=== PATIENT | female | born 1950 | race Caucasian/White ===

== ENCOUNTER 2017-08-08 19:39 | Emergency (ER) | payer MEDICARE ==
[~2017-08-08] VITALS: Ht 160 cm; Wt 50.0 kg
[2017-08-08 20:05] LABS: HEMATOCRIT 38.8 % (37.0-47.0); HEMOGLOBIN 12.9 g/dl (12.0-16.0); IMMATURE GRANULOCYTES 0.3 % (0.0-1.0); MEAN CORPUSCULAR HGB 34.6 pG CALC (26.0-32.0); MEAN CORPUSCULAR HGB CONC 33.2 g/L CALC (32.0-36.0); NEUT# 6.54 thou/uL (2.00-7.15); RED BLOOD COUNT 3.73 mill/uL (4.20-5.60)
[2017-08-08] MEDS ORDERED: ATORVASTATIN CA40 MG PO (20:13)
[2017-08-08] MEDS ORDERED: KEPPRA750 M2 PO (20:13)
[2017-08-08] MEDS ORDERED: LISINOPRIL10 MG PO (20:13)
[2017-08-08] MEDS ORDERED: DILANTIN100 MG PO (20:14)
[2017-08-08 20:20] LABS: ALBUMIN 4.5 g/dL (3.2-5.0); ALKALINE PHOSPHATASE 170 u/l (38-126); ANION GAP 16 (6-22 (CALC)); BILIRUBIN, TOTAL 0.6 mg/dL (0.0-1.4); BUN 8 mg/dL (8-23); BUN/CREATININE RATIO 15 (12-20 (CALC)); CARBON DIOXIDE 21 mmol/l (22-30); CHLORIDE 103 mmol/l (95-108); CREATININE 0.5 mg/dL (0.5-1.0); GFR > 60 ML/MIN (>=60 (CALC)); GFR FOR AFR.AMER. > 60 ML/MIN (>=60 (CALC)); MAGNESIUM 1.7 mg/dL (1.6-2.3); POTASSIUM 4.4 mmol/l (3.5-5.1); SGOT/AST 32 u/l (9-36); SGPT/ALT 34 u/l (11-66); SODIUM 136 mmol/l (137-146); TOTAL PROTEIN 7.8 g/dL (6.3-8.2)
[2017-08-08 20:31] LABS: MYOGLOBIN 15 ng/mL (0 - 62)
[2017-08-08 22:37] VITALS: BP 189/78
== END 2017-08-08 22:04 | disposition short-term general hospital (02) ==
LOC: ED 19:39
DX: G40.909 Epilepsy, unspecified, not intractable, without status epilepticus (principal); R53.1 Weakness; I10 Essential (primary) hypertension; E78.5 Hyperlipidemia, unspecified; F17.210 Nicotine dependence, cigarettes, uncomplicated; Z86.73 Personal history of transient ischemic attack (TIA), and cerebral infarction without residual deficits

== ENCOUNTER 2017-10-28 12:09 | Emergency (ER) | payer MEDICARE ==
[~2017-10-28] VITALS: Ht 160 cm; Wt 50.0 kg
[~2017-10-28 12:09] MED LIST: ATORVASTATIN CA40 MG PO; DILANTIN100 MG PO; KEPPRA750 M2 PO; LISINOPRIL10 MG PO
[2017-10-28] MEDS ORDERED: BUSPAR10 M1 PO (12:36)
[2017-10-28] MEDS ORDERED: PANTOPRAZOLE SO40 MG PO (12:36)
[2017-10-28] MEDS ORDERED: DILTIAZEM HCL180 MG PO (12:36)
[2017-10-28] MEDS ORDERED: TORADOL PO (13:41)
[2017-10-28] MEDS ORDERED: PERCOCET 5/325M1 TAB PO (13:52)
[2017-10-28 13:55] VITALS: BP 154/86
== END 2017-10-28 13:55 | disposition home or self-care (01) ==
LOC: ED 12:09
DX: S20.211A Contusion of right front wall of thorax, initial encounter (principal); I10 Essential (primary) hypertension; E78.5 Hyperlipidemia, unspecified; F17.210 Nicotine dependence, cigarettes, uncomplicated; W18.30XA Fall on same level, unspecified, initial encounter; Y92.009 Unspecified place in unspecified non-institutional (private) residence as the place of occurrence of the external cause; Z86.73 Personal history of transient ischemic attack (TIA), and cerebral infarction without residual deficits

== ENCOUNTER 2018-01-05 17:07 | Emergency (ER) | payer MEDICARE ==
[~2018-01-05] VITALS: Ht 160 cm; Wt 48.0 kg
[~2018-01-05 17:07] MED LIST changes: +BUSPAR10 M1 PO; +DILTIAZEM HCL180 MG PO; +PANTOPRAZOLE SO40 MG PO; +PERCOCET 5/325M1 TAB PO; +TORADOL PO
[2018-01-05 18:25] LABS: HEMATOCRIT 41.3 % (37.0-47.0); HEMOGLOBIN 13.9 g/dl (12.0-16.0); IMMATURE GRANULOCYTES 0.4 % (0.0-5.0); MEAN CELL VOLUME 105.9 fL CALC (80.0-100.0); MEAN CORPUSCULAR HGB 35.6 pG CALC (26.0-32.0); MEAN CORPUSCULAR HGB CONC 33.7 g/L CALC (32.0-36.0); NEUT# 11.67 thou/uL (2.00-7.15); RED BLOOD COUNT 3.9 mill/uL (4.20-5.60); RED CELL DISTRI WIDTH 12.3 % (11.5-15.5)
[2018-01-05 19:16] LABS: ALBUMIN 3.8 g/dL (3.2-5.0); ALKALINE PHOSPHATASE 247 u/l (38-126); ANION GAP 13 (6-22 (CALC)); BILIRUBIN, TOTAL 0.9 mg/dL (0.0-1.4); BUN 10 mg/dL (8-23); BUN/CREATININE RATIO 19 (12-20 (CALC)); CARBON DIOXIDE 28 mmol/l (22-30); CHLORIDE 106 mmol/l (95-108); CREATININE 0.5 mg/dL (0.5-1.0); GFR > 60 ML/MIN (>=60 (CALC)); GFR FOR AFR.AMER. > 60 ML/MIN (>=60 (CALC)); SODIUM 142 mmol/l (137-146); TOTAL PROTEIN 6.7 g/dL (6.3-8.2)
[2018-01-05 19:17] LABS: SGOT/AST 191 u/l (9-36)
[2018-01-05 19:24] LABS: AMYLASE 2087 u/l (30-110)
[2018-01-05 19:29] LABS: URINE BILIRUBIN - DIPSTICK NEGATIVE (NEGATIVE); URINE BLOOD DIPSTICK NEGATIVE (NEGATIVE); URINE COLOR YELLOW; URINE GLUCOSE - DIPSTICK NEGATIVE (NEGATIVE); URINE KETONE NEGATIVE (NEGATIVE); URINE LEUK ESTERASE NEGATIVE (NEGATIVE); URINE NITRITE - DIPSTICK NEGATIVE (Negative); URINE PROTEIN - DIPSTICK NEGATIVE (NEG-TRACE); URINE SPECIFIC GRAVITY 1.015
[2018-01-05 19:44] LABS: LIPASE 28896 u/l (23-300)
[2018-01-05 19:47] LABS: MYOGLOBIN 21 ng/mL (0 - 62)
[2018-01-05 19:52] LABS: URINE CLARITY CLEAR
[2018-01-06 00:05] VITALS: BP 124/62
== END 2018-01-06 00:10 | disposition short-term general hospital (02) ==
LOC: ED 17:07
PROVIDERS: Emergency Medicine
DX: K85.10 Biliary acute pancreatitis without necrosis or infection (principal); K80.50 Calculus of bile duct without cholangitis or cholecystitis without obstruction; I10 Essential (primary) hypertension; E78.5 Hyperlipidemia, unspecified; F17.210 Nicotine dependence, cigarettes, uncomplicated; Z86.73 Personal history of transient ischemic attack (TIA), and cerebral infarction without residual deficits
CPT/HCPCS: Q9967; S0164

== ENCOUNTER 2018-01-15 14:27 | Emergency (ER) | payer MEDICARE ==
[~2018-01-15] VITALS: Ht 160 cm; Wt 46.0 kg
[2018-01-15 14:32] VITALS: BP 152/77
[2018-01-15 15:14] LABS: IMMATURE GRANULOCYTES 0.3 % (0.0-5.0); MEAN CELL VOLUME 108.6 fL CALC (80.0-100.0); MEAN CORPUSCULAR HGB 34.6 pG CALC (26.0-32.0); MEAN CORPUSCULAR HGB CONC 31.8 g/L CALC (32.0-36.0); NEUT# 7.64 thou/uL (2.00-7.15); RED BLOOD COUNT 3.24 mill/uL (4.20-5.60); RED CELL DISTRI WIDTH 12.1 % (11.5-15.5)
[2018-01-15 15:17] LABS: HEMATOCRIT 35.2 % (37.0-47.0); HEMOGLOBIN 11.2 g/dl (12.0-16.0)
[2018-01-15 15:33] LABS: ANION GAP 15 (6-22 (CALC)); BUN 13 mg/dL (8-23); BUN/CREATININE RATIO 30 (12-20 (CALC)); CARBON DIOXIDE 23 mmol/l (22-30); CHLORIDE 108 mmol/l (95-108); CREATININE 0.4 mg/dL (0.5-1.0); GFR > 60 ML/MIN (>=60 (CALC)); GFR FOR AFR.AMER. > 60 ML/MIN (>=60 (CALC)); POTASSIUM 3.9 mmol/l (3.5-5.1); SODIUM 142 mmol/l (137-146)
[2018-01-15] MEDS ORDERED: MECLIZINE25 MG PO (15:48)
[2018-01-15] MEDS ORDERED: PANTOPRAZOLE SO40 MG PO (15:52)
[2018-01-15] MEDS ORDERED: ADULT ASPIRIN R81 MG PO (15:53)
[2018-01-15] MEDS ORDERED: CENTRUM PO (15:54)
== END 2018-01-15 16:15 | disposition home or self-care (01) ==
LOC: ED 14:27
PROVIDERS: Family Medicine
DX: G43.909 Migraine, unspecified, not intractable, without status migrainosus (principal); D32.9 Benign neoplasm of meninges, unspecified; I10 Essential (primary) hypertension; E78.5 Hyperlipidemia, unspecified; F17.210 Nicotine dependence, cigarettes, uncomplicated; Z86.73 Personal history of transient ischemic attack (TIA), and cerebral infarction without residual deficits

== ENCOUNTER → 2018-03-29 | Outpatient (REF) | payer MEDICARE ==
[~2018-03-29] MED LIST changes: +ADULT ASPIRIN R81 MG PO; +CENTRUM PO; +MECLIZINE25 MG PO
[2018-03-29 11:34] LABS: MEAN CELL VOLUME 105.6 fL CALC (80.0-100.0); MEAN CORPUSCULAR HGB 33.3 pG CALC (26.0-32.0); MEAN CORPUSCULAR HGB CONC 31.6 g/L CALC (32.0-36.0); RED BLOOD COUNT 3.6 mill/uL (4.20-5.60); RED CELL DISTRI WIDTH 12.2 % (11.5-15.5)
[2018-03-29 12:51] LABS: ALBUMIN 4.5 g/dL (3.2-5.0); ALKALINE PHOSPHATASE 259 u/l (38-126); ANION GAP 17 (6-22 (CALC)); BILIRUBIN, TOTAL 0.4 mg/dL (0.0-1.4); BUN 10 mg/dL (8-23); BUN/CREATININE RATIO 22 (12-20 (CALC)); CARBON DIOXIDE 25 mmol/l (22-30); CHLORIDE 105 mmol/l (95-108); CREATININE 0.5 mg/dL (0.5-1.0); GFR > 60 ML/MIN (>=60 (CALC)); GFR FOR AFR.AMER. > 60 ML/MIN (>=60 (CALC)); POTASSIUM 3.9 mmol/l (3.5-5.1); SODIUM 143 mmol/l (137-146); TOTAL PROTEIN 7.9 g/dL (6.3-8.2)
[2018-03-29 13:00] LABS: CALCULATED LDLCHOLESTEROL 132 mg/dL (62-129 (CALC)); CHOLESTEROL HDL RATIO 3.5 (<4.4 (CALC)); HDL CHOLESTEROL 66 mg/dL (>=40); PHENYTOIN (DILANTIN) 8 ug/mL (10 - 20); SGOT/AST 16 u/l (9-36); TOTAL CHOLESTEROL 231 mg/dl (0-199); TOTAL TRIGLYCERIDES 165 mg/dl (30-149); VLDL CHOLESTROL 33 mg/dl (0-48 (CALC))
[2018-03-29 13:13] LABS: TSH, 3RD GENERATION 2.05 uIU/mL (0.47 - 4.68)
== END | disposition home or self-care (01) ==
LOC: LAB 10:14
PROVIDERS: ATTEND Nurse Practitioner Family
DX: R56.9 Unspecified convulsions (principal); Z86.73 Personal history of transient ischemic attack (TIA), and cerebral infarction without residual deficits; R68.84 Jaw pain

== ENCOUNTER → 2018-04-27 | Outpatient (REF) | payer MEDICARE | END | disposition home or self-care (01) | LOC: ULTRASND 10:24 | PROVIDERS: ATTEND Internal Medicine | DX: R68.84 Jaw pain (principal); E04.9 Nontoxic goiter, unspecified ==

== ENCOUNTER 2018-07-17 10:10 | Inpatient (IN) | payer MEDICARE ==
[~2018-07-17] VITALS: Ht 160 cm; Wt 47.2 kg
[2018-07-17 10:45] LABS: HEMATOCRIT 38.3 % (37.0-47.0); HEMOGLOBIN 12.2 g/dl (12.0-16.0); IMMATURE GRANULOCYTES 0.4 % (0.0-5.0); MEAN CELL VOLUME 100.5 fL CALC (80.0-100.0); MEAN CORPUSCULAR HGB CONC 31.9 g/L CALC (32.0-36.0); NEUT# 8.1 thou/uL (2.00-7.15); RED BLOOD COUNT 3.81 mill/uL (4.20-5.60); RED CELL DISTRI WIDTH 12.8 % (11.5-15.5)
[2018-07-17 11:17] LABS: PROTHROMBIN TIME 10.7 SECONDS (9.0-12.5)
[2018-07-17 11:26] LABS: ALKALINE PHOSPHATASE 289 u/l (38-126); ANION GAP 22 (6-22 (CALC)); BILIRUBIN, TOTAL 0.5 mg/dL (0.0-1.4); BUN 16 mg/dL (8-23); BUN/CREATININE RATIO 25 (12-20 (CALC)); CARBON DIOXIDE 24 mmol/l (22-30); CHLORIDE 98 mmol/l (95-108); CREATININE 0.6 mg/dL (0.5-1.0); ETHYL ALCOHOL 0 mg/dl (0-30); GFR > 60 ML/MIN (>=60 (CALC)); GFR FOR AFR.AMER. > 60 ML/MIN (>=60 (CALC)); POTASSIUM 3.9 mmol/l (3.5-5.1); SODIUM 140 mmol/l (137-146); TOTAL PROTEIN 7.3 g/dL (6.3-8.2)
[2018-07-17 11:30] LABS: SGOT/AST 89 u/l (9-36)
[2018-07-17 11:54] LABS: MYOGLOBIN 2584 ng/mL (0 - 62)
[2018-07-17 12:34] LABS: URINE BILIRUBIN - DIPSTICK NEGATIVE (NEGATIVE); URINE BLOOD DIPSTICK MODERATE (NEGATIVE); URINE COLOR YELLOW; URINE GLUCOSE - DIPSTICK NEGATIVE (NEGATIVE); URINE KETONE 15 mg/dL (NEGATIVE); URINE LEUK ESTERASE NEGATIVE (NEGATIVE); URINE NITRITE - DIPSTICK NEGATIVE (Negative); URINE PH 5.5 (4.5-8.0); URINE PROTEIN - DIPSTICK >=300 mg/dL (NEG-TRACE); URINE SPECIFIC GRAVITY 1.025; URINE UROBILINOGEN - DIPSTICK 0.2 E.U./dL (0.2)
[2018-07-17 12:35] LABS: URINE EPITHELIAL CELLS MODERATE EPI/hpf (0-FEW)
[2018-07-17 12:36] LABS: BARBITURATES POSITIVE (NEGATIVE); COCAINE NEGATIVE (NEGATIVE); METHADONE NEGATIVE (NEGATIVE); TETRAHYDROCANNABIONOL NEGATIVE (NEGATIVE); TRICYLIC ANTIDEPRESSANTS NEGATIVE (NEGATIVE); URINE MUCUS MODERATE hpf (NONE-FEW)
[2018-07-17 12:37] LABS: OXCYCODONE NEGATIVE (NEGATIVE)
[2018-07-17 14:48] VITALS: BP 149/79
[2018-07-17] MEDS ORDERED: EXCEDRIN EXTRA1 TA1 PO (15:03)
[2018-07-17] MEDS ORDERED: B-12100 MCG (15:04)
[2018-07-17 19:25] VITALS: BP 116/73
[2018-07-18 04:21] VITALS: BP 143/80
[2018-07-18 05:33] LABS: HEMATOCRIT 32.7 % (37.0-47.0); HEMOGLOBIN 10.5 g/dl (12.0-16.0); IMMATURE GRANULOCYTES 0.3 % (0.0-5.0); MEAN CELL VOLUME 99.1 fL CALC (80.0-100.0); MEAN CORPUSCULAR HGB 31.8 pG CALC (26.0-32.0); MEAN CORPUSCULAR HGB CONC 32.1 g/L CALC (32.0-36.0); NEUT# 4.31 thou/uL (2.00-7.15); RED BLOOD COUNT 3.3 mill/uL (4.20-5.60); RED CELL DISTRI WIDTH 12.8 % (11.5-15.5)
[2018-07-18 05:49] LABS: ALKALINE PHOSPHATASE 223 u/l (38-126); AMYLASE 42 u/l (30-110); ANION GAP 15 (6-22 (CALC)); BILIRUBIN, TOTAL 0.3 mg/dL (0.0-1.4); BUN 10 mg/dL (8-23); BUN/CREATININE RATIO 23 (12-20 (CALC)); CARBON DIOXIDE 27 mmol/l (22-30); CHLORIDE 101 mmol/l (95-108); CREATININE 0.5 mg/dL (0.5-1.0); GFR > 60 ML/MIN (>=60 (CALC)); GFR FOR AFR.AMER. > 60 ML/MIN (>=60 (CALC)); LIPASE 30 u/l (23-300); MAGNESIUM 1.7 mg/dL (1.6-2.3); POTASSIUM 3.5 mmol/l (3.5-5.1); SGOT/AST 85 u/l (9-36); SODIUM 138 mmol/l (137-146)
[2018-07-18 05:59] LABS: ALBUMIN 3.1 g/dL (3.2-5.0)
[2018-07-18 08:08] VITALS: BP 158/64
[2018-07-18 15:10] VITALS: BP 162/92
[2018-07-18 19:10] VITALS: BP 139/86
[2018-07-19 03:47] VITALS: BP 148/82
[2018-07-19 04:59] LABS: HEMATOCRIT 33.1 % (37.0-47.0); HEMOGLOBIN 10.4 g/dl (12.0-16.0); IMMATURE GRANULOCYTES 0.3 % (0.0-5.0); MEAN CELL VOLUME 101.5 fL CALC (80.0-100.0); MEAN CORPUSCULAR HGB 31.9 pG CALC (26.0-32.0); MEAN CORPUSCULAR HGB CONC 31.4 g/L CALC (32.0-36.0); NEUT# 4.41 thou/uL (2.00-7.15); RED BLOOD COUNT 3.26 mill/uL (4.20-5.60); RED CELL DISTRI WIDTH 12.7 % (11.5-15.5)
[2018-07-19 05:35] LABS: ALBUMIN 3.1 g/dL (3.2-5.0); ALKALINE PHOSPHATASE 217 u/l (38-126); ANION GAP 14 (6-22 (CALC)); BILIRUBIN, TOTAL 0.2 mg/dL (0.0-1.4); BUN 6 mg/dL (8-23); BUN/CREATININE RATIO 14 (12-20 (CALC)); CARBON DIOXIDE 29 mmol/l (22-30); CHLORIDE 102 mmol/l (95-108); CREATININE 0.4 mg/dL (0.5-1.0); GFR > 60 ML/MIN (>=60 (CALC)); GFR FOR AFR.AMER. > 60 ML/MIN (>=60 (CALC)); MAGNESIUM 1.6 mg/dL (1.6-2.3); POTASSIUM 3.8 mmol/l (3.5-5.1); SGOT/AST 128 u/l (9-36); SODIUM 141 mmol/l (137-146)
[2018-07-19 08:06] VITALS: BP 152/73
[2018-07-19 15:00] VITALS: BP 141/77
[2018-07-19 19:17] VITALS: BP 137/70
[2018-07-20 04:10] VITALS: BP 141/91
[2018-07-20 06:07] LABS: HEMOGLOBIN 10.2 g/dl (12.0-16.0); IMMATURE GRANULOCYTES 0.4 % (0.0-5.0); MEAN CELL VOLUME 101.3 fL CALC (80.0-100.0); MEAN CORPUSCULAR HGB 32.3 pG CALC (26.0-32.0); MEAN CORPUSCULAR HGB CONC 31.9 g/L CALC (32.0-36.0); NEUT# 4.38 thou/uL (2.00-7.15); RED BLOOD COUNT 3.16 mill/uL (4.20-5.60); RED CELL DISTRI WIDTH 12.7 % (11.5-15.5)
[2018-07-20 06:33] LABS: ALKALINE PHOSPHATASE 198 u/l (38-126); AMYLASE 47 u/l (30-110); ANION GAP 13 (6-22 (CALC)); BILIRUBIN, TOTAL 0.2 mg/dL (0.0-1.4); BUN 6 mg/dL (8-23); BUN/CREATININE RATIO 17 (12-20 (CALC)); CARBON DIOXIDE 27 mmol/l (22-30); CHLORIDE 102 mmol/l (95-108); CREATININE 0.4 mg/dL (0.5-1.0); GFR > 60 ML/MIN (>=60 (CALC)); GFR FOR AFR.AMER. > 60 ML/MIN (>=60 (CALC)); LIPASE 85 u/l (23-300); MAGNESIUM 1.4 mg/dL (1.6-2.3); POTASSIUM 3.3 mmol/l (3.5-5.1); SGOT/AST 94 u/l (9-36); SODIUM 139 mmol/l (137-146); TOTAL PROTEIN 5.9 g/dL (6.3-8.2)
[2018-07-20 08:00] VITALS: BP 147/72
[2018-07-20 15:05] VITALS: BP 154/65
[2018-07-20 19:15] VITALS: BP 147/79
[2018-07-21 03:52] VITALS: BP 148/83
[2018-07-21 05:43] LABS: HEMATOCRIT 35.5 % (37.0-47.0); HEMOGLOBIN 11.1 g/dl (12.0-16.0); IMMATURE GRANULOCYTES 0.3 % (0.0-5.0); MEAN CELL VOLUME 101.7 fL CALC (80.0-100.0); MEAN CORPUSCULAR HGB 31.8 pG CALC (26.0-32.0); MEAN CORPUSCULAR HGB CONC 31.3 g/L CALC (32.0-36.0); NEUT# 4.8 thou/uL (2.00-7.15); RED BLOOD COUNT 3.49 mill/uL (4.20-5.60)
[2018-07-21 05:51] LABS: ALBUMIN 3.3 g/dL (3.2-5.0); ALKALINE PHOSPHATASE 225 u/l (38-126); ANION GAP 13 (6-22 (CALC)); BILIRUBIN, TOTAL 0.2 mg/dL (0.0-1.4); BUN 7 mg/dL (8-23); BUN/CREATININE RATIO 20 (12-20 (CALC)); CARBON DIOXIDE 27 mmol/l (22-30); CHLORIDE 101 mmol/l (95-108); CREATININE 0.4 mg/dL (0.5-1.0); GFR > 60 ML/MIN (>=60 (CALC)); GFR FOR AFR.AMER. > 60 ML/MIN (>=60 (CALC)); MAGNESIUM 1.5 mg/dL (1.6-2.3); POTASSIUM 3.4 mmol/l (3.5-5.1); SGOT/AST 53 u/l (9-36); SODIUM 138 mmol/l (137-146); TOTAL PROTEIN 6.4 g/dL (6.3-8.2)
[2018-07-21 07:59] VITALS: BP 180/90
[2018-07-21 09:01] LABS: URINE BILIRUBIN - DIPSTICK NEGATIVE (NEGATIVE); URINE BLOOD DIPSTICK LARGE (NEGATIVE); URINE GLUCOSE - DIPSTICK NEGATIVE (NEGATIVE); URINE KETONE NEGATIVE (NEGATIVE); URINE NITRITE - DIPSTICK NEGATIVE (Negative); URINE PROTEIN - DIPSTICK 100 mg/dL (NEG-TRACE); URINE SPECIFIC GRAVITY 1.015; URINE UROBILINOGEN - DIPSTICK 0.2 E.U./dL (0.2)
[2018-07-21 09:04] LABS: URINE COLOR AMBER; URINE LEUK ESTERASE SMALL (NEGATIVE)
[2018-07-21 09:11] VITALS: BP 144/70
[2018-07-21 09:13] LABS: URINE RBC >100 RBC/hpf (0-5); URINE SQUAMOUS EPITHELIAL CELL FEW EPI/hpf (0-FEW)
[2018-07-21 16:00] VITALS: BP 156/89
[2018-07-21 20:16] VITALS: BP 140/74
[2018-07-22 04:00] VITALS: BP 132/78
[2018-07-22 05:29] LABS: HEMATOCRIT 34.1 % (37.0-47.0); HEMOGLOBIN 10.7 g/dl (12.0-16.0); IMMATURE GRANULOCYTES 0.3 % (0.0-5.0); MEAN CELL VOLUME 102.1 fL CALC (80.0-100.0); MEAN CORPUSCULAR HGB CONC 31.4 g/L CALC (32.0-36.0); NEUT# 5.02 thou/uL (2.00-7.15); RED BLOOD COUNT 3.34 mill/uL (4.20-5.60); RED CELL DISTRI WIDTH 13.1 % (11.5-15.5)
[2018-07-22 05:44] LABS: ALBUMIN 3.2 g/dL (3.2-5.0); ALKALINE PHOSPHATASE 222 u/l (38-126); ANION GAP 13 (6-22 (CALC)); BUN 13 mg/dL (8-23); BUN/CREATININE RATIO 35 (12-20 (CALC)); CARBON DIOXIDE 28 mmol/l (22-30); CHLORIDE 103 mmol/l (95-108); CREATININE 0.4 mg/dL (0.5-1.0); GFR > 60 ML/MIN (>=60 (CALC)); GFR FOR AFR.AMER. > 60 ML/MIN (>=60 (CALC)); MAGNESIUM 1.8 mg/dL (1.6-2.3); SGOT/AST 40 u/l (9-36); SODIUM 140 mmol/l (137-146); TOTAL PROTEIN 6.2 g/dL (6.3-8.2)
[2018-07-22 05:48] LABS: BILIRUBIN, TOTAL 0.3 mg/dL (0.0-1.4)
[2018-07-22 08:35] VITALS: BP 116/52
[2018-07-22 15:33] VITALS: BP 154/78
[2018-07-22 20:07] VITALS: BP 135/75
[2018-07-23 04:13] VITALS: BP 135/65
[2018-07-23 05:17] LABS: HEMATOCRIT 32.3 % (37.0-47.0); HEMOGLOBIN 9.9 g/dl (12.0-16.0); IMMATURE GRANULOCYTES 0.6 % (0.0-5.0); MEAN CELL VOLUME 101.3 fL CALC (80.0-100.0); MEAN CORPUSCULAR HGB CONC 30.7 g/L CALC (32.0-36.0); NEUT# 4.33 thou/uL (2.00-7.15); RED BLOOD COUNT 3.19 mill/uL (4.20-5.60); RED CELL DISTRI WIDTH 12.9 % (11.5-15.5)
[2018-07-23 05:35] LABS: ALKALINE PHOSPHATASE 217 u/l (38-126); ANION GAP 13 (6-22 (CALC)); BILIRUBIN, TOTAL 0.2 mg/dL (0.0-1.4); BUN 14 mg/dL (8-23); BUN/CREATININE RATIO 37 (12-20 (CALC)); CARBON DIOXIDE 27 mmol/l (22-30); CHLORIDE 102 mmol/l (95-108); CREATININE 0.4 mg/dL (0.5-1.0); GFR > 60 ML/MIN (>=60 (CALC)); GFR FOR AFR.AMER. > 60 ML/MIN (>=60 (CALC)); MAGNESIUM 1.8 mg/dL (1.6-2.3); POTASSIUM 4.5 mmol/l (3.5-5.1); SGOT/AST 35 u/l (9-36); SODIUM 137 mmol/l (137-146)
[2018-07-23 07:43] VITALS: BP 142/80
[2018-07-23 15:35] VITALS: BP 141/71
[2018-07-23 15:45] LABS: URINE BILIRUBIN - DIPSTICK NEGATIVE (NEGATIVE); URINE BLOOD DIPSTICK NEGATIVE (NEGATIVE); URINE COLOR YELLOW; URINE GLUCOSE - DIPSTICK 100 mg/dL (NEGATIVE); URINE KETONE NEGATIVE (NEGATIVE); URINE LEUK ESTERASE NEGATIVE (Negative); URINE NITRITE - DIPSTICK POSITIVE (Negative); URINE PH 5.5 (4.5-8.0); URINE PROTEIN - DIPSTICK TRACE mg/dL (NEG-TRACE); URINE SPECIFIC GRAVITY 1.015
[2018-07-23 15:47] LABS: URINE CLARITY CLEAR
[2018-07-23 16:00] LABS: URINE RBC 0-2 RBC/hpf (0-5); URINE SQUAMOUS EPITHELIAL CELL FEW EPI/hpf (0-FEW); URINE WBC 0-2 WBC/hpf (0-5)
[2018-07-23 19:52] VITALS: BP 148/71
[2018-07-24 04:11] VITALS: BP 124/74
[2018-07-24 05:02] LABS: HEMOGLOBIN 10.5 g/dl (12.0-16.0); IMMATURE GRANULOCYTES 0.6 % (0.0-5.0); MEAN CELL VOLUME 102.1 fL CALC (80.0-100.0); MEAN CORPUSCULAR HGB 31.5 pG CALC (26.0-32.0); MEAN CORPUSCULAR HGB CONC 30.9 g/L CALC (32.0-36.0); NEUT# 4.53 thou/uL (2.00-7.15); RED BLOOD COUNT 3.33 mill/uL (4.20-5.60); RED CELL DISTRI WIDTH 12.8 % (11.5-15.5)
[2018-07-24 05:36] LABS: ALBUMIN 3.6 g/dL (3.2-5.0); ALKALINE PHOSPHATASE 298 u/l (38-126); BUN 18 mg/dL (8-23); BUN/CREATININE RATIO 38 (12-20 (CALC)); CARBON DIOXIDE 27 mmol/l (22-30); CHLORIDE 100 mmol/l (95-108); CPK 61 u/l (30-165); CREATININE 0.5 mg/dL (0.5-1.0); GFR > 60 ML/MIN (>=60 (CALC)); GFR FOR AFR.AMER. > 60 ML/MIN (>=60 (CALC)); MAGNESIUM 2.1 mg/dL (1.6-2.3); SGOT/AST 40 u/l (9-36); SODIUM 139 mmol/l (137-146); TOTAL PROTEIN 6.7 g/dL (6.3-8.2)
[2018-07-24 05:40] LABS: ANION GAP 17 (6-22 (CALC)); BILIRUBIN, TOTAL 0.3 mg/dL (0.0-1.4); POTASSIUM 5.2 mmol/l (3.5-5.1)
[2018-07-24 07:49] VITALS: BP 122/76
[2018-07-24 07:58] VITALS: BP 122/76
[2018-07-24] MEDS ORDERED: KEFLEX500 MG PO (12:12)
== END 2018-07-24 13:38 | DRG 558 ==
LOC: ED 10:10 → ED-I 12:50 → ED 13:23 → MS2 13:24
PROVIDERS: Emergency Medicine; Internal Medicine Nephrology; ADMIT Internal Medicine Nephrology; ATTEND Internal Medicine Nephrology
DX: M62.82 Rhabdomyolysis (principal); N39.0 Urinary tract infection, site not specified; N17.9 Acute kidney failure, unspecified; G40.909 Epilepsy, unspecified, not intractable, without status epilepticus; I10 Essential (primary) hypertension; D32.0 Benign neoplasm of cerebral meninges; E78.5 Hyperlipidemia, unspecified; K21.9 Gastro-esophageal reflux disease without esophagitis; F10.10 Alcohol abuse, uncomplicated; K83.8 Other specified diseases of biliary tract; T42.76XA Underdosing of unspecified antiepileptic and sedative-hypnotic drugs, initial encounter; D64.9 Anemia, unspecified; B96.20 Unspecified Escherichia coli [E. coli] as the cause of diseases classified elsewhere; Z86.73 Personal history of transient ischemic attack (TIA), and cerebral infarction without residual deficits; Z87.891 Personal history of nicotine dependence; Z96.89 Presence of other specified functional implants
CPT/HCPCS: G0378

== ENCOUNTER 2018-09-19 17:14 | Emergency (ER) | payer MEDICARE ==
[~2018-09-19] VITALS: Ht 160 cm; Wt 46.8 kg
[~2018-09-19 17:14] MED LIST changes: +B-12100 MCG; +EXCEDRIN EXTRA1 TA1 PO; +KEFLEX500 MG PO
[2018-09-19 17:58] LABS: HEMATOCRIT 36.5 % (37.0-47.0); IMMATURE GRANULOCYTES 0.3 % (0.0-5.0); MEAN CELL VOLUME 100.3 fL CALC (80.0-100.0); MEAN CORPUSCULAR HGB 30.2 pG CALC (26.0-32.0); MEAN CORPUSCULAR HGB CONC 30.1 g/L CALC (32.0-36.0); NEUT# 7.51 thou/uL (2.00-7.15); RED BLOOD COUNT 3.64 mill/uL (4.20-5.60)
[2018-09-19] MEDS ORDERED: ZESTRIL10 M1 PO (18:11)
[2018-09-19 18:17] LABS: ALBUMIN 4.2 g/dL (3.2-5.0); ALKALINE PHOSPHATASE 295 u/l (38-126); ANION GAP 16 (6-22 (CALC)); BUN 15 mg/dL (8-23); BUN/CREATININE RATIO 30 (12-20 (CALC)); CARBON DIOXIDE 21 mmol/l (22-30); CHLORIDE 111 mmol/l (95-108); CREATININE 0.5 mg/dL (0.5-1.0); GFR > 60 ML/MIN (>=60 (CALC)); GFR FOR AFR.AMER. > 60 ML/MIN (>=60 (CALC)); LIPASE 37 u/l (23-300); POTASSIUM 4.3 mmol/l (3.5-5.1); SGOT/AST 24 u/l (9-36); SODIUM 144 mmol/l (137-146); TOTAL PROTEIN 8.3 g/dL (6.3-8.2)
[2018-09-19 18:18] LABS: BILIRUBIN, TOTAL 0.5 mg/dL (0.0-1.4)
[2018-09-19 18:30] VITALS: BP 160/69
[2018-09-19] MEDS ORDERED: ONDANSETRON4 MG PO (18:53)
[2018-09-19 19:02] LABS: URINE BILIRUBIN - DIPSTICK NEGATIVE (NEGATIVE); URINE BLOOD DIPSTICK NEGATIVE (NEGATIVE); URINE COLOR YELLOW; URINE GLUCOSE - DIPSTICK NEGATIVE (NEGATIVE); URINE KETONE NEGATIVE (NEGATIVE); URINE LEUK ESTERASE NEGATIVE (NEGATIVE); URINE NITRITE - DIPSTICK NEGATIVE (Negative); URINE PROTEIN - DIPSTICK TRACE mg/dL (NEG-TRACE); URINE SPECIFIC GRAVITY >=1.030; URINE UROBILINOGEN - DIPSTICK 0.2 E.U./dL (0.2)
== END 2018-09-19 19:16 | disposition home or self-care (01) ==
LOC: ED 17:14
PROVIDERS: Family Medicine
DX: K52.9 Noninfective gastroenteritis and colitis, unspecified (principal); I10 Essential (primary) hypertension; F17.290 Nicotine dependence, other tobacco product, uncomplicated; Z86.73 Personal history of transient ischemic attack (TIA), and cerebral infarction without residual deficits

== ENCOUNTER 2018-09-30 14:29 | Observation (INO) | payer MEDICARE ==
[~2018-09-30] VITALS: Ht 160 cm; Wt 46.0 kg
[~2018-09-30 14:29] MED LIST changes: +ONDANSETRON4 MG PO; +ZESTRIL10 M1 PO
--- NOTE | 2018-09-30 14:29 | NUR ---
PATIENT ARRIVED VIA EMS AND EMS STATES PATIENTS LKW 1400 TODAY AND HAD SUDDEN ONSET OF WEAKNESS. PATIENT HAS NO RESISTANCE AGAINST GRAVITY BILATERAL LOWER ETREMITY, ATAXIA UPPER LEFT EXTREMITY AND SLIGHT DYSARTHRIA. DAUGHTER STATES UNSURE IF PATIENT HAVING SEIZURE OR CVA PATIENT HAS HX OF BOTH. STROKE ALERT CALLED AND MD AT BEDSIDE FOR EVAL.
--- NOTE | 2018-09-30 14:45 | NUR ---
TELESTROKE STARTED WITH DR EID. ANU BECK.
--- NOTE | 2018-09-30 15:00 | NUR ---
TELESTROKE COMPLETED. DR EID STATES POSSIBLE SEIZURE OR POSTICTAL STATE NO TPA RECOMMENDED. NIHSS UNCHANGED FROM INITIAL. FAMILY AT BEDSIDE. PATIENT REMAINS DROWSY BUT ORIENTED TO PERSON, PLACE AND TIME. PATIENT HAS NO RESISTANCE AGAINST GRAVITY BILATERAL LOWER EXTREMITIES, LEFT UPPER ATAXIA AND MILD DYSARTHRIA. VISUAL GIFFORD INTACT SECURITY SYSTEM ENGINEER EQUAL. SENSATION INTACT
[2018-09-30 15:28] LABS: HEMATOCRIT 32.7 % (37.0-47.0); HEMOGLOBIN 9.8 g/dl (12.0-16.0); IMMATURE GRANULOCYTES 0.3 % (0.0-5.0); MEAN CELL VOLUME 100.6 fL CALC (80.0-100.0); MEAN CORPUSCULAR HGB 30.2 pG CALC (26.0-32.0); NEUT# 3.55 thou/uL (2.00-7.15); RED BLOOD COUNT 3.25 mill/uL (4.20-5.60); RED CELL DISTRI WIDTH 14.8 % (11.5-15.5)
[2018-09-30 15:39] LABS: GFR > 60 ML/MIN (>=60 (CALC)); GFR FOR AFR.AMER. > 60 ML/MIN (>=60 (CALC))
[2018-09-30 15:41] LABS: ALBUMIN 3.7 g/dL (3.2-5.0); ALKALINE PHOSPHATASE 220 u/l (38-126); BUN 13 mg/dL (8-23); BUN/CREATININE RATIO 25 (12-20 (CALC)); CARBON DIOXIDE 31 mmol/l (22-30); CHLORIDE 108 mmol/l (95-108); CREATININE 0.5 mg/dL (0.5-1.0); GFR > 60 ML/MIN (>=60 (CALC)); GFR FOR AFR.AMER. > 60 ML/MIN (>=60 (CALC)); SGOT/AST 22 u/l (9-36); SODIUM 145 mmol/l (137-146)
[2018-09-30 15:42] LABS: ANION GAP 11 (6-22 (CALC)); BILIRUBIN, TOTAL 0.3 mg/dL (0.0-1.4); POTASSIUM 4.9 mmol/l (3.5-5.1)
[2018-09-30 15:49] LABS: ACT PARTIAL THROMBO TIME 25.7 SECONDS (20.0-32.5); PROTHROMBIN TIME 10.1 SECONDS (9.0-12.5)
--- NOTE | 2018-09-30 16:03 | NUR ---
PT TO CTA AND BACK, DILANTIN GIVEN. NO SEIZURE ACTIVITY. PT CONTINUES GENERALLY WEAK, BUT IS TALKATIVE NOW. DAUGHTER CRISTHIAN AT BEDSIDE.
[2018-09-30 16:44] LABS: URINE BILIRUBIN - DIPSTICK NEGATIVE (NEGATIVE); URINE BLOOD DIPSTICK NEGATIVE (NEGATIVE); URINE COLOR YELLOW; URINE GLUCOSE - DIPSTICK NEGATIVE (NEGATIVE); URINE KETONE NEGATIVE (NEGATIVE); URINE LEUK ESTERASE NEGATIVE (NEGATIVE); URINE NITRITE - DIPSTICK NEGATIVE (Negative); URINE PH 6.5 (4.5-8.0); URINE PROTEIN - DIPSTICK NEGATIVE (NEG-TRACE); URINE SPECIFIC GRAVITY <=1.005; URINE UROBILINOGEN - DIPSTICK 0.2 E.U./dL (0.2)
[2018-09-30 16:51] LABS: BARBITURATES POSITIVE (NEGATIVE); COCAINE NEGATIVE (NEGATIVE); METHADONE NEGATIVE (NEGATIVE); OXCYCODONE NEGATIVE (NEGATIVE); TETRAHYDROCANNABIONOL NEGATIVE (NEGATIVE); TRICYLIC ANTIDEPRESSANTS NEGATIVE (NEGATIVE)
--- NOTE | 2018-09-30 18:08 | NUR ---
PT RECIEVED FROM ER VIA STRETCHER. ACCOMPANIED BY ER NURSE AND PTS DAUGHTER. PT ORIENTED TO ROOM AND CALL LIGHT SYSTEM. WILL REVIEW DIET FOR DINNER TRAY ORDER. TELE MONITOR IN PLACE. SR 71 AT THIS TIME PER ER STAFF. CALL LIGHT IN REACH.
[2018-09-30 18:09] VITALS: BP 154/78
--- NOTE | 2018-09-30 18:19 | NUR ---
PT TAKEN TO ROOM 280 WITHOUT INCIDENT, REPORT WAS TO BOUCHRA.
--- NOTE | 2018-09-30 20:00 | NUR ---
PATIENT RESTING IN BED WITH DAUGHTER AT BEDSIDE. PATIENT ATE 100% OF DINNER TRAY PROVIDED. ATE WITHOUT ANY DIFFICULTY. PATIENT IS AWAKE ALERT AND ORIENTEDX3. TELE MONITOR IN PLACE. PATIENT REQUEST THAT RIGHT AC IV SITE BE CHANGED-C/O PAIN AT SITE. SITE D/C'ED WITH CATH INTACT. IV SITE TO LEFT HAND-UNABLE TO FLUSH AND SITE DC'ED-CATH INTACT. NEW IV SITE STARTED TO LEFT FOREARM-#22 GAUGE WITH GOOD BLOOD RETURN. PATIENT ASSISTED TO BR TO VOID CLEAR YELLOW URINE AND THEN ASSIST BACK TO BED. STATES THAT HE LAST BM WAS YESTERDAY. LUNGS ARE DIMINISHED BUT CLEAR. ABD IS SOFT WITH BS+. NO PEDAL EDEMA NOTED. PULSES ARE PALPABLE. SPEECH IS SLOW BUT UNDERSTANDABLE. LEFT HAND GRASP WAS WEAKER MCGINNIS RIGHT. PATIENT ABLE TO PUSH DOWN WITH BRENDA FEET. SANAM. PATIENT WITH GENERALIZED WEAKNESS LEFT GREATER THAN RIGHT. PATIENT ORIENTED TO ROOM AND SURROUNDINGS. INSTRUCTED ON USE OF NURSE CALL LIGHT SYSTEM, TV REMOTE AND PHONE. SAFETY PRECAUTIONS REINFORCED. CALL LIGHT IN REACH. WILL CONT TO MONITOR.
[2018-09-30 21:12] VITALS: BP 163/76
--- NOTE | 2018-09-30 21:15 | NUR ---
CALLED TO ROOM BY IN HOME BABY SITTER-PATIENT HAVING DIFFICULTY WITH TRANSFER FROM [facility] BACK TO BED. PATIENT WITH INCREASED WEAKNESS TO LEFT SIDE. LEFT HAND GRASP MUCH LESS THAN RIGHT. PATIENT WITH INCREASE OF SLURRED SPEECH. PATIENT IS STILL ABLE TO ANSWER QUESTIONS CORRECTLY BUT MORE SLURRED AND SLOWER. ABLE TO COMPREHEND ANSWERS. LEFT SIDE FACIAL DROOP NOTED. VS TAKEN-163/76, PULSE 81. PATIENT WITH INCREASED DROWSINESS. 214-STROKE ALERT CALLED-TEAM RESPONDED. 2150-PATIENT TO CT VIA BED WITH STAFF IN ATTENDANCE. 220-PATIENT TRANSFERRED TO ER VIA BED FOR POSS STROKE ALERT 2212-NO ACUTE CHANGES ON CT BRAIN-ER NURSE LEONEL GOINS SPOKE WITH DR. BEY AND [facility] STROKE ALERT TEAM. 2240-PATIENT TRANSPORTED BACK TO ROOM VIA BED WITH STAFF IN ATTENDANCE. WILL CONT TO MONITOR.
[2018-09-30 21:30] VITALS: BP 105/65
[2018-09-30 21:45] VITALS: BP 127/71
--- NOTE | 2018-09-30 21:50 | NUR ---
STROKE ALERT CALLED AT 2142. ARRIVED TO PATIENT ROOM AND PATIENT FOUND TO BE DROWSY BUT RESPONDING TO QUESTIONS. STAFF STATES SHE HAD A LEFT FACIAL DROOP AND C/O WEAKNESS, ALSO THAT PATIENT SPEECH WAS DIFFERENT THAN ARRIVAL TO FLOOR. PATIENT TRANSPORTED TO CAT SCAN. TAKEN TO ER TO COMPLETE NIHSS. STROKE SCALE IS A 6. PATIENT SPEECH IS SLOW BUT COMPREHENSIBLE, PATIENT HAS A DRIFT TO ALL FOUR EXTREMITIES, LIMBS NEVER TOUCH BED. THIS IS AN IMPROVEMENT THAN NIHSS DONE IN ER. PATIENT VISUAL GIFFORD ARE INTACT, SENSATION IS GOOD. FACIAL DROOP SEEMS RESOLVED. 2211 CT RESULTS CALLED TO DR WHITMORE 2234 SPOKE WITH ROSEANNE, STROKE RN, TO DISCUSS PATIENT STATUS TO SEE IF NEURO WANTED TO TELESTROKE AGAIN. DECLINED. [address] CASTANEDA REGARDING NIHSS, CAT SCAN RESULTS, AND PATIENT CURRENT STATUS. STATES HE WILL KEEP PATIENT HERE AND CONTINUE TO MONITOR.
[2018-09-30 22:40] VITALS: BP 134/61
[2018-10-01] VITALS (7 sets, daily range): BP systolic 103–154; BP diastolic 49–87
--- NOTE | 2018-10-01 | NUR ---
PATIENT RESTING IN BED AT THIS TIME WITH EYES CLOSED. RESP ARE EVEN AND UNLABORED. APPEARS SLEEPING. TELE MONITOR IN PLACE. SALINE LOCK TO LEFT FOREARM INTACT AND REMAINS HEALTHY AT THIS TIME. SIDERAILS PADDED FOR SEIZURE ACTIVITY. CALL LIGHT IN REACH, WILL CONT TO MONITOR.
--- NOTE | 2018-10-01 01:57 | NUR ---
PATIENT ASSISTED FROM BED TO BSC TO VOID. PATIENT ASSISTED BACK TO BED. PATIENT STILL WITH WEAK LEFT HAND GRASP. SIDE RAILS PADDED FOR SEIZURE PRECAUTIONS. SAFETY PRECAUTIONS REINFORCED. CALL LIGHT IN REACH. WILL CONT TO MONITOR.
--- NOTE | 2018-10-01 02:55 | NUR ---
PATIENT RESTING IN BED-C/O HEADACHE AND MEDICATED WITH TYLENOL 650MG PO FOR HEADACHE. PATIENT DRINKING FROM STRAW WITHOUT ANY DIFFICULTY. SAFETY PRECAUTIONS REINFORCED. CALL LIGHT IN REACH. WILL CONT TO MONITOR.
--- NOTE | 2018-10-01 04:08 | NUR ---
PATIENT APPEARS SLEEPING AT THIS TIME-POSITIONED ON RIGHT SIDE WITH EYES CLOSED. RESP ARE EVEN AND UNLABORED.TELE MONITOR IN PLACE. SALINE LOCK TO LEFT FOREARM REMAINS IN PLACE AND APPEARS HEALTHY. CALL LIGHT IN REACH. WILL CONT TO MONITOR.
--- NOTE | 2018-10-01 05:22 | NUR ---
PATIENT CONT TO REST WITH EYES CLOSED ON RIGHT SIDE. RESP ARE EVEN AND UNLABORED. SIDERAILS PADDED FOR SEIZURE PRECAUTIONS. NO SEIZURES ACTIVITY NOTED. CALL LIGHT IN REACH. WILL CONT TO MONITOR.
--- NOTE | 2018-10-01 07:05 | NUR ---
REPORT RECEIVED FROM TERRENCE GOINS. PT RESTING IN BED. TELE IN PLACE. NO S/S OF DISTRESS AT THIS TIME. SAFETY PRECAUTIONS IN PLACE. WILL CONTINUE TO MONITOR.
--- NOTE | 2018-10-01 08:11 | NUR ---
PT RESTING IN BED, ALERT AND ORIENTED. RESPIRATIONS EVEN AND UNLABORED ON RA. LUNGS SOUND CLEAR DIMINISHED. PEDAL PULES WEAK. TELE IN PLACE. #22 LFA, SL PATENT AND APPEARS HEALTHY. SEIZURE PRECAUTIONS IN PLACE. CALL BROOKS WITHIN REACH. WILL CONTINUE TO MONITOR.
[2018-10-01 12:58] LABS: C-REACTIVE PROTEIN 6.1 mg/dL (0-0.9)
--- NOTE | 2018-10-01 13:00 | NUR ---
PT RESTING IN BED. ALERT AND ORIENTED. RESPIRATIONS EVEN AND UNLABORED ON RA. SEIZURE PRECAUTIONS IN PLACE. CALL BROOKS WITHIN REACH. WILL CONTINUE TO MONITOR.
--- NOTE | 2018-10-01 19:52 | NUR ---
PATIENT RESTING IN BED AT THIS TIME WITH DAUGHTER AT BEDSIDE. PATIENT IS AWAKE ALERT AND ORIENTEDX3. PATIENT IS AWAITING TRANSFER TO [facility] WHENEVER BED ASSIGNMENT IS RECIEVED. TELE MONITOR IN PLACE. SALINE LOCK TO LEFT FOREARM INTACT AND APPEARS HEALTHY AT THIS TIME, SAFETY PRECAUTIONS REINFORCED. CALL LIGHT IN REACH. WILL CONT TO MONITOR.
--- NOTE | 2018-10-01 20:30 | NUR ---
RECIEVED CALL FROM [facility] TRANSFER CENTER WITH ROOM ASSIGNMENT FOR PATIENT BEING TRANSFERRED TO [facility] FOR NEURO SERVICES-ROOM 581-A WAS ASSIGNED-INFORMATION GIVEN TO MICHAEL TERRAZAS AND TRANSPORTATION ARRANGEMENTS ARE BEING MADE. TRANSFER ORDER HAS BEEN OBTAINED. PATIENT ADVISED OF TRANSFER IN [id number]. 2100-[facility] HERE TO TRANSPORT PATIENT TO [facility]-581-A. TELE MONITOR WAS REMOVED. PACKET WAS GIVEN TO [facility] PERSONEL. PATIENT TRANSFERRED TO STRETCHER WITH PERSONEL BELONGINGS BAG. PATIENT BEING TRANSPORTED TO [facility] ROOM 581-A BY [facility]. SPOKE WITH PATIENT DAUGHTER ELIA IRWINING PATIENT TRANSFER AND ROOM#. 8596-REPORT CALLED TO JULIO GOINS AT [facility].
== END 2018-10-01 21:00 | disposition short-term general hospital (02) ==
LOC: ED 14:29 → ED-I 16:15 → ED 16:47 → MS2 16:48
PROVIDERS: Family Medicine; ADMIT Internal Medicine; ATTEND Internal Medicine
DX: D32.0 Benign neoplasm of cerebral meninges (principal); G93.6 Cerebral edema; I10 Essential (primary) hypertension; E78.5 Hyperlipidemia, unspecified; G40.909 Epilepsy, unspecified, not intractable, without status epilepticus; F10.10 Alcohol abuse, uncomplicated; M19.90 Unspecified osteoarthritis, unspecified site; F31.9 Bipolar disorder, unspecified; F17.290 Nicotine dependence, other tobacco product, uncomplicated; Z86.73 Personal history of transient ischemic attack (TIA), and cerebral infarction without residual deficits; Z96.89 Presence of other specified functional implants
CPT/HCPCS: A9579; J1953; J2997; Q9967

== ENCOUNTER 2019-04-15 20:47 | Observation (INO) | payer MEDICARE ==
[~2019-04-15] VITALS: Ht 160 cm; Wt 51.3 kg
--- NOTE | 2019-04-15 20:47 | NUR ---
TO TX ROOM VIA STRETCHER BY EMS
--- NOTE | 2019-04-15 20:48 | NUR ---
PT. TO ROOM 13 VIA EMS WITH C/O PT. FOUND ON THE SIDE OF THE ROAD SEIZING. PT. HAS A PMH OF SEIZURES AND BRAIN CA,PT. HAS AN ECCHYMOTIC AREA ABOVE LEFT EYE. PT. IS POST ICTIL AT THIS TIME. V/S STABLE. SKIN WARM AND DRY TO TOUC, COLOR WNL, RESP. EVEN AND UNLABORED.
[2019-04-15 21:28] LABS: HEMATOCRIT 33.7 % (37.0-47.0); HEMOGLOBIN 10.6 g/dl (12.0-16.0); IMMATURE GRANULOCYTES 0.5 % (0.0-5.0); MEAN CELL VOLUME 105.3 fL CALC (80.0-100.0); MEAN CORPUSCULAR HGB 33.1 pG CALC (26.0-32.0); MEAN CORPUSCULAR HGB CONC 31.5 g/L CALC (32.0-36.0); NEUT# 9.99 thou/uL (2.00-7.15); RED BLOOD COUNT 3.2 mill/uL (4.20-5.60); RED CELL DISTRI WIDTH 12.2 % (11.5-15.5)
--- NOTE | 2019-04-15 21:48 | NUR ---
PT. REMAINS POST ICTAL, V/S STABLE, NO C/O PAIN OR DISCOMFORT OFFERED.
[2019-04-15 21:49] LABS: ALKALINE PHOSPHATASE 223 u/l (38-126); BILIRUBIN, TOTAL 0.4 mg/dL (0.0-1.4); BUN 14 mg/dL (8-23); BUN/CREATININE RATIO 29 (12-20 (CALC)); CHLORIDE 101 mmol/l (95-108); CREATININE 0.5 mg/dL (0.5-1.0); GFR > 60 ML/MIN (>=60 (CALC)); GFR FOR AFR.AMER. > 60 ML/MIN (>=60 (CALC)); PHENYTOIN (DILANTIN) 11 ug/mL (10 - 20); POTASSIUM 4.5 mmol/l (3.5-5.1); SGOT/AST 24 u/l (9-36); TOTAL PROTEIN 7.3 g/dL (6.3-8.2)
[2019-04-15 21:51] LABS: ANION GAP 16 (6-22 (CALC)); CARBON DIOXIDE 20 mmol/l (22-30); SODIUM 132 mmol/l (137-146)
[2019-04-15 21:58] LABS: MYOGLOBIN 48 ng/mL (0 - 62)
--- NOTE | 2019-04-15 22:20 | NUR ---
PT. ST CATH FOR URINE SAMPLE, PT. TOLERATED WELL.
[2019-04-15 22:42] LABS: URINE BILIRUBIN - DIPSTICK NEGATIVE (NEGATIVE); URINE BLOOD DIPSTICK TRACE-INTACT (NEGATIVE); URINE COLOR YELLOW; URINE GLUCOSE - DIPSTICK NEGATIVE (NEGATIVE); URINE KETONE NEGATIVE (NEGATIVE); URINE LEUK ESTERASE NEGATIVE (NEGATIVE); URINE NITRITE - DIPSTICK NEGATIVE (Negative); URINE SPECIFIC GRAVITY 1.025; URINE UROBILINOGEN - DIPSTICK 0.2 E.U./dL (0.2)
[2019-04-15 22:43] LABS: URINE PROTEIN - DIPSTICK Trace mg/dL (NEG-TRACE)
[2019-04-15 22:44] LABS: BARBITURATES POSITIVE (NEGATIVE); COCAINE NEGATIVE (NEGATIVE); METHADONE NEGATIVE (NEGATIVE); OXCYCODONE NEGATIVE (NEGATIVE); TETRAHYDROCANNABIONOL NEGATIVE (NEGATIVE); TRICYLIC ANTIDEPRESSANTS NEGATIVE (NEGATIVE)
--- NOTE | 2019-04-15 23:20 | NUR ---
PT. ASSISTED ON BP VOIDED QS BASHIR URINE.
--- NOTE | 2019-04-15 23:55 | NUR ---
PT. AND PT. DAUGHTER MADE HER AWARE OF ADMISSION, VERBALIZED UNDERSTANDING.
[2019-04-16] VITALS (10 sets, daily range): BP systolic 93–143; BP diastolic 43–68
--- NOTE | 2019-04-16 00:24 | NUR ---
Admission Note Report Given to: MAXIMINO GOINS Transported by: Wheelchair X Stretcher Transported with: X Nurse Transporter X Patent IV O2 X Scientific Programmer Location: X ICU MS2
--- NOTE | 2019-04-16 00:25 | NUR ---
PT. TAKEN TO RI FLOOR VIA STRETCHER.
--- NOTE | 2019-04-16 00:40 | NUR ---
RECEIVED PT FROM ER.
--- NOTE | 2019-04-16 01:15 | NUR ---
PT AWAKE AND ALERT, ECCHYMOTIC AREA NOTED TO L SIDE OF FACE. PT L HAND WITH DIFFICULTY GRIPPING AND L ARM WEAKNESS. PT RELATED NO CHANGE SINCE PREVIOUS CVA. PROVIDED SAFETY ORIENTATION TO ROOM. CALL IN REACH.
--- NOTE | 2019-04-16 01:20 | NUR ---
PTRELATED SHE FEELS ANXIOUS, RESTLESS LEGS. PT HAS HX OF SAME AT HOME. CALL BROOKS IN REACH.
--- NOTE | 2019-04-16 04:00 | NUR ---
PT WITH EYES CLOSED. RESPONDED TO VERBAL STIMULI. RELATED HEADACHE HAS IMPROVED. CALL BROOKS IN REACH.
--- NOTE | 2019-04-16 05:45 | NUR ---
TREVIN REPOSITIONED AND RETAPED LWRIST IV, FLUSHED WITHOUT DIFF.
[2019-04-16 06:36] LABS: HEMATOCRIT 28.3 % (37.0-47.0); HEMOGLOBIN 9.1 g/dl (12.0-16.0); IMMATURE GRANULOCYTES 0.4 % (0.0-5.0); MEAN CELL VOLUME 102.5 fL CALC (80.0-100.0); MEAN CORPUSCULAR HGB CONC 32.2 g/L CALC (32.0-36.0); NEUT# 4.37 thou/uL (2.00-7.15); RED BLOOD COUNT 2.76 mill/uL (4.20-5.60); RED CELL DISTRI WIDTH 12.2 % (11.5-15.5)
[2019-04-16 06:50] LABS: ANION GAP 11 (6-22 (CALC)); BUN 12 mg/dL (8-23); BUN/CREATININE RATIO 23 (12-20 (CALC)); CARBON DIOXIDE 23 mmol/l (22-30); CHLORIDE 103 mmol/l (95-108); CREATININE 0.5 mg/dL (0.5-1.0); GFR > 60 ML/MIN (>=60 (CALC)); GFR FOR AFR.AMER. > 60 ML/MIN (>=60 (CALC)); POTASSIUM 4.4 mmol/l (3.5-5.1); SODIUM 133 mmol/l (137-146)
--- NOTE | 2019-04-16 07:09 | NUR ---
REPORT TO MAURILIO GOINS.
--- NOTE | 2019-04-16 07:20 | NUR ---
REPORT RECEIVED FROM BUSTER STANTON. PT RESTING IN BED SEMI FOWLERS; ALERT AND ORIENTED. ASSITED ONTO BEDPAN FOR VOID OF 100ML CLEAR YELLOW. DENIES PAIN. RESPIRATIONS EVEN AND UNLABORED ON ROOM AIR. PLAN OF CARE REVIEWED. PT ENCOURAGED TO VERBALIZE CONCERNS. STATES UNDERSTANDING. SAFETY MEASURES IN PLACE. CALL LIGHT WITHIN REACH.
--- NOTE | 2019-04-16 08:15 | NUR ---
DR. CASTANEDA AT BEDSIDE. SPOKE WITH DAUGHTER ON TELEPHONE.
--- NOTE | 2019-04-16 09:40 | NUR ---
IV SITE INFILTRATED AND DISCONTINUED. ICE APPLIED AND ELEVATED ON PILLOWS.
--- NOTE | 2019-04-16 12:04 | NUR ---
Discharge instructions given. Patient verbalizes understanding of same. Discharged in stable condition via Wheelchair to Home with volunteer. All belongings sent with pt.
== END 2019-04-16 12:05 | disposition home or self-care (01) ==
LOC: ED 20:47 → ED-I 23:24 → ED 23:37 → ICU 23:38
PROVIDERS: Emergency Medicine; ADMIT Internal Medicine; ATTEND Internal Medicine
DX: G40.909 Epilepsy, unspecified, not intractable, without status epilepticus (principal); I10 Essential (primary) hypertension; D18.00 Hemangioma unspecified site; F10.10 Alcohol abuse, uncomplicated; F31.9 Bipolar disorder, unspecified; M19.90 Unspecified osteoarthritis, unspecified site; F17.290 Nicotine dependence, other tobacco product, uncomplicated; Z86.73 Personal history of transient ischemic attack (TIA), and cerebral infarction without residual deficits; Z79.899 Other long term (current) drug therapy

== ENCOUNTER 2019-12-17 14:47 | Inpatient (IN) | payer MEDICARE ==
[~2019-12-17] VITALS: Ht 160 cm; Wt 47.8 kg
--- NOTE | 2019-12-17 14:47 | NUR ---
PT TO ROOM VIA EMS STRETCHER FOR BEDSIDE TRIAGE, STAFF AT BEDSIDE ON ARRIVAL PT WITH I GEL IN PLACE. PLACED IN FIELD FOR RESP DISTRESS
--- NOTE | 2019-12-17 16:00 | NUR ---
1454 ETOMIDATE GIVEN 1455 ROCURONIUM GIVEN 1456 ETT 7.5 PLACED 22 AT LIP LINE 1515 MD AT BEDSIDE FOR TLC PLACEMENT 1521 PLACEMENT COMPLETE
--- NOTE | 2019-12-17 16:15 | NUR ---
RESTRAINTS IN PLACE AND MEDICATED ORDERED, DIPROVAN INFUSING W/O INCIDENT, LAB WORK DRAWN AND SENT, AWAITING SECOND SET OF BC FOR ABT INFUSING.
--- NOTE | 2019-12-17 16:17 | NUR ---
PT ARRIVED BY EMS WITH IGEL IN PLACE. PT INTUBATED AT 14:[address] TORRES. FIRST ATTEMPT WITH 7.5 ET TUBE SECURED 22 AT LIP. TUBE PLACEMENT VERIFIED WITH ETCO2 AND XRAY. ABG ON ORDERED SETTINGS. 400/18/5/50% - 7.25/51.5/247/21.6 FIO2 DECREASED TO 32%. PT TOLERATING WELL AT THIS TIME. BUSTER CUELLAR AT BEDSIDE.
[2019-12-17 16:55] LABS: HEMATOCRIT 39.2 % (37.0-47.0); IMMATURE GRANULOCYTES 0.5 % (0.0-5.0); MEAN CELL VOLUME 103.4 fL CALC (80.0-100.0); MEAN CORPUSCULAR HGB 32.5 pG CALC (26.0-32.0); MEAN CORPUSCULAR HGB CONC 31.4 g/dL CAL (32.0-36.0); NEUT# 18.39 thou/uL (2.00-7.15); RED BLOOD COUNT 3.79 mill/uL (4.20-5.60); RED CELL DISTRI WIDTH 14.4 % (11.5-15.5)
[2019-12-17 16:59] LABS: HEMOGLOBIN 12.3 g/dl (12.0-16.0)
--- NOTE | 2019-12-17 17:00 | NUR ---
PT RESTING NO S/S OF DISTRESS, TOLERATING INTUBATION WITJOUT INCIDENT, IOV ABT INFUSING IVF WELL, RESTRAINT REMAIN INTACT. OG PLACED 16F PLACEMNET VERIFIED BY AND THIS RN.
[2019-12-17 17:18] LABS: ALKALINE PHOSPHATASE 212 u/l (38-126); BUN 12 mg/dL (8-23); BUN/CREATININE RATIO 17 (12-20 (CALC)); CPK 69 u/l (30-165); CREATININE 0.7 mg/dL (0.5-1.0); ETHYL ALCOHOL 0 mg/dl (0-30); GFR > 60 ML/MIN (>=60 (CALC)); GFR FOR AFR.AMER. > 60 ML/MIN (>=60 (CALC)); LIPASE 95 u/l (23-300); MAGNESIUM 2.1 mg/dL (1.6-2.3); POTASSIUM 4.1 mmol/l (3.5-5.1); SODIUM 141 mmol/l (137-146); TOTAL PROTEIN 7.7 g/dL (6.3-8.2)
[2019-12-17 17:18] LABS: URINE BILIRUBIN - DIPSTICK NEGATIVE (NEGATIVE); URINE BLOOD DIPSTICK MODERATE (NEGATIVE); URINE COLOR YELLOW; URINE GLUCOSE - DIPSTICK NEGATIVE (NEGATIVE); URINE KETONE NEGATIVE (NEGATIVE); URINE LEUK ESTERASE TRACE (NEGATIVE); URINE NITRITE - DIPSTICK NEGATIVE (Negative); URINE PH 5.5 (4.5-8.0); URINE PROTEIN - DIPSTICK 100 mg/dL (NEG-TRACE); URINE SPECIFIC GRAVITY >=1.030; URINE UROBILINOGEN - DIPSTICK 0.2 E.U./dL (0.2)
[2019-12-17 17:19] LABS: CHLORIDE 104 mmol/l (95-108)
[2019-12-17 17:23] LABS: ALBUMIN 4.3 g/dL (3.2-5.0); ANION GAP 20 (6-22 (CALC)); BILIRUBIN, TOTAL 0.3 mg/dL (0.0-1.4); CARBON DIOXIDE 21 mmol/l (22-30); SGOT/AST 42 u/l (9-36)
[2019-12-17 17:37] LABS: URINE RENAL EPITHELIAL CELLS FEW hpf; URINE SQUAMOUS EPITHELIAL CELL FEW EPI/hpf (0-FEW)
[2019-12-17 17:47] LABS: TSH, 3RD GENERATION 5.42 uIU/mL (0.47 - 4.68)
--- NOTE | 2019-12-17 18:03 | NUR ---
PT TO CT WITH TELE AND RT AT SIDE
--- NOTE | 2019-12-17 18:20 | NUR ---
Pt tolerated CT without incident medicated for s/s of pain MD aware, will medicate as ordered
--- NOTE | 2019-12-17 19:05 | NUR ---
PT RESTING. ON VENT WITH PROPOFOL INFUSING/IVF/ANTIBIOTIC INFUSING. NG TO LIS. PUPILS PINPOINT BBS CLEAR. ABD SOFT. NG PLACEMENT + WITH AIR INSERTION. HERNANDEZ TO GRAVITY. DURING EXAM PT NATASHA UP RIGHT LEG/RIGHT ARM. RIGHT ARM APPEARS TO BE SEIZUING. NOTIFIED
--- NOTE | 2019-12-17 19:15 | NUR ---
DR TO BEDSIDE. SEIZING STOPPED.
--- NOTE | 2019-12-17 19:43 | NUR ---
CASSIDY CALLED BACK. APPARENTLY DR. TORRES TRIED TO CALL HER EARILER. GRANDDAUGHTER UPDATED. REPORT TO SHAHBAZ, ICU NURSE.
--- NOTE | 2019-12-17 19:58 | NUR ---
TO ICU VIA STRETCHER WITH DIPRAVAN INFUSING. IVF AND ANTIBIOTIC COMPLETED. PT HAS HERNANDEZ/NGT. ET TUBE. RT AT BEDSIDE. TRANSFERRED TO BED UPON ARRIVAL.
--- NOTE | 2019-12-17 20:04 | NUR ---
69 yr old white female admitted icu8 per stretcher from er. transferred x3 to bed. bed weight obtained. vent cont assisted by pt. compliance monitor shows sinus rhythm hr 93. #20 ems site lt wrist saline lock. rij tlc in place. diprovan infusing @ 70mcg/kg/min. og to lis draining yellow. bilat scds began. bilat wrist restraints cont. history obtained per er record & old chart. fall & air/contact precautions began.
[2019-12-17 20:10] VITALS: BP 176/68
[2019-12-17 20:30] VITALS: BP 145/63
[2019-12-17 20:45] VITALS: BP 143/65
--- NOTE | 2019-12-17 20:50 | NUR ---
pt is intubated. unable to take po meds. order written for dilantin liquid via tube.
[2019-12-17 21:00] VITALS: BP 116/55
--- NOTE | 2019-12-17 21:15 | NUR ---
unable to get dilatin liquid. supervisor labor gang notified. supervisor labor gang called angelica pharmacist. angelica advised supervisor labor gang she would come to hosp to get med, she lived in [place] & would be approx 1 hr.
--- NOTE | 2019-12-17 21:35 | NUR ---
ivf began as ordered.
--- NOTE | 2019-12-17 21:40 | NUR ---
angelica called this unit & spoke with carl contreras. advised her to mix caplet in water, let stand x 10 min then administer. order rewritten per this freelance writer.
[2019-12-17 22:00] VITALS: BP 92/41
[2019-12-17 23:00] VITALS: BP 91/45
[2019-12-18] VITALS (16 sets, daily range): BP systolic 90–188; BP diastolic 45–82
--- NOTE | 2019-12-18 00:01 | NUR ---
eyes closed. remains ssedated. no sz activity.
--- NOTE | 2019-12-18 02:00 | NUR ---
vent cont assisted by pt. ekg monitor tech shows sinus rhythm hr 84.
--- NOTE | 2019-12-18 04:10 | NUR ---
blood drawn & sent to lab.
[2019-12-18 04:54] LABS: IMMATURE GRANULOCYTES 0.3 % (0.0-5.0); MEAN CELL VOLUME 104.2 fL CALC (80.0-100.0); MEAN CORPUSCULAR HGB 32.4 pG CALC (26.0-32.0); MEAN CORPUSCULAR HGB CONC 31.1 g/dL CAL (32.0-36.0); NEUT# 4.18 thou/uL (2.00-7.15); RED BLOOD COUNT 2.62 mill/uL (4.20-5.60); RED CELL DISTRI WIDTH 14.8 % (11.5-15.5)
[2019-12-18 05:01] LABS: HEMATOCRIT 27.3 % (37.0-47.0); HEMOGLOBIN 8.5 g/dl (12.0-16.0)
--- NOTE | 2019-12-18 05:10 | NUR ---
am care given. linen changed.
[2019-12-18 05:36] LABS: ALKALINE PHOSPHATASE 150 u/l (38-126); ANION GAP 8 (6-22 (CALC)); BILIRUBIN, TOTAL 0.2 mg/dL (0.0-1.4); BUN 8 mg/dL (8-23); BUN/CREATININE RATIO 14 (12-20 (CALC)); CARBON DIOXIDE 25 mmol/l (22-30); CHLORIDE 109 mmol/l (95-108); CREATININE 0.6 mg/dL (0.5-1.0); GFR > 60 ML/MIN (>=60 (CALC)); GFR FOR AFR.AMER. > 60 ML/MIN (>=60 (CALC)); MAGNESIUM 1.7 mg/dL (1.6-2.3); POTASSIUM 3.6 mmol/l (3.5-5.1); SGOT/AST 39 u/l (9-36); SODIUM 137 mmol/l (137-146)
[2019-12-18 05:43] LABS: ALBUMIN 2.7 g/dL (3.2-5.0); TOTAL PROTEIN 5.2 g/dL (6.3-8.2)
--- NOTE | 2019-12-18 05:50 | NUR ---
rt here. abgs drawn
--- NOTE | 2019-12-18 06:25 | NUR ---
xray here. pcxr obtained.
--- NOTE | 2019-12-18 07:14 | NUR ---
REPORT RECEIVED FROM ANIMAL ANATOMIST, DIPROVAN AND NS INFUSING, VITAL SIGNS STABLE. WRIST RESTRAINTS REMAIN ON.
--- NOTE | 2019-12-18 08:32 | NUR ---
PER DR. CASTANEDA ORDER STARTED TO WEAN PT OFF OF DIPROVAN, DECREASED DOWN TO 50 ML
--- NOTE | 2019-12-18 08:40 | NUR ---
DECREASED DIPROVAN TO 40 ML BLOOD PRESSURE 86/44
--- NOTE | 2019-12-18 08:45 | NUR ---
DIPROVAN DECREASED TO 20 VITAL SIGNS STABLE. PT STARTING TO MOVE ARMS AND EYES OPENING ON OWN, TRYING TO TALK
--- NOTE | 2019-12-18 08:55 | NUR ---
PT STARTING TO MOVE HANDS, BLOOD PRESSURE UP AT THIS TIME.
--- NOTE | 2019-12-18 09:02 | NUR ---
D/Navin CASTELAN, PT AWAKENS EASILY, ANSWERS QUESTIONS WITH A SHAKE OF HEAD
--- NOTE | 2019-12-18 09:23 | NUR ---
PT EXTUBATED PER CRIB CLERK WITH DR. LEONEL MILLARD. PT AT 2 LITRES PER N/C, PT ALERT/DROWSY, TALKING WITH STAFF. VITAL SIGNS STABLE
--- NOTE | 2019-12-18 09:30 | NUR ---
PT. EXTUBATED AND PLACED ON 2L NC.
--- NOTE | 2019-12-18 09:31 | NUR ---
PHYSICAL THERAPY CONSULT PLACED.
--- NOTE | 2019-12-18 10:01 | NUR ---
BLOOD DRAW FOR LACTIC OBTAINED
--- NOTE | 2019-12-18 10:33 | NUR ---
PTS FAMILY BROUGHT PTS PHONE IN, PT ASKED ME TO PLUG IT IN TO BE CHARGED WITH HER PREMIUM CARD CANCELLATION CLERK, PT ALSO HAD A VAPE CIGARETTE IN BAG THAT WAS BROUGHT IN, ADVISED PT THAT SHE COULD NOT USE IT, AND PLACED BAG ON STAND PT IS NOT ABLE TO REACH
--- NOTE | 2019-12-18 11:30 | NUR ---
PT TRYING TO GET UP OUT OF BED, PULLING OFF O2, STATING SHE HEARS HER PHONE RINGING, EXPLAINED IT WAS MONITER NOT PHONE, PT BECOMING AGITATED.
--- NOTE | 2019-12-18 11:40 | NUR ---
RESTRAINTS REMOVED , PT APPEARS TO HAVE CALMED DOWN AT THIS TIME, WILL REEVALUATE IF SYMPTOMS CHANGE
--- NOTE | 2019-12-18 13:50 | NUR ---
WARM BLANKETS GIVEN, VITAL STABLE, PT ALERT/ORIENTED X3
[2019-12-18] MEDS ORDERED: KEPPRA750 M2 PO (14:11)
[2019-12-18] MEDS ORDERED: DILT-XR180 MG PO (14:11)
[2019-12-18] MEDS ORDERED: CITALOPRAM10 M1 PO (14:13)
[2019-12-18] MEDS ORDERED: PROTONIX40 M2 PO (14:13)
[2019-12-18] MEDS ORDERED: DILANTIN100 MG PO (14:13)
--- NOTE | 2019-12-18 15:40 | NUR ---
PT SITTING UP IN BED, REQUESTING ICE CHIPS, AND WERE GIVEN. PT PULLING OFF O2 NASAL CANNULA, STATES DOESNT LIKE HAVING IT IN. VITAL SIGNS REMAIN STABLE.
--- NOTE | 2019-12-18 16:06 | NUR ---
Patient is screened for intervention and would benefit from OT and ST consults
--- NOTE | 2019-12-18 16:31 | NUR ---
PT STATING SHE WANTS TO GET UP AND SIT UP IN CHAIR, ADVISED PT THAT SHE NEEDED TO JUST SIT UP IN BED AT THIS TIME. PT REQUESTING TO USE PHONE AGAIN. PHONE GIVEN TO PT.
--- NOTE | 2019-12-18 18:16 | NUR ---
PT RESTING QUIETLY ON BED AT THIS TIME, VITAL SIGNS STABLE. IV FLUIDS INFUSING IN CENTRAL LINE. PT TALKING ON PHONE
--- NOTE | 2019-12-18 20:20 | NUR ---
BEDRESTING. WATCHING TV. ALERT. COOPERATIVE. RESP EVEN AND NONLABORED. RAILS REMAIN PADDED FOR SEIZURE PRECAUTIONS. IV FLUIDS INFUSING RX VIA TLCL. PT DENIES DISTRESS. HERNANDEZ TO BSC- TOLERATING WELL. NO SEIZURE ACTIVITY AST THIS TIME
--- NOTE | 2019-12-18 21:15 | NUR ---
WATCHING TV. MOVES ABOUT IN BED AD MANINDER. REMAINS DROWSEY- TRYING TO CHANGE CHANNELS AND INCREASING THE VOLUME INSTEAD. NOT TOO INTERESTED IN REDIRECTION. C/O H/A. TYLENOL GIVEN WITH DILANTIN. DRANK A CUP OF WATER WITH PILLS-TOLERATED WELL
--- NOTE | 2019-12-18 22:00 | NUR ---
DENIES H/A AT THIS TIME- TYLENOL WORKED! WATCHING TV AND DOZING AT INTERVALS
--- NOTE | 2019-12-19 | NUR ---
BEDRESTING. EYES CLOSED. RESP EVEN AND NONLABORED. TV ON NO DISTRESS NOTED. NO SEIZURE ACTIVITY NOTED
[2019-12-19 01:00] VITALS: BP 155/69
--- NOTE | 2019-12-19 02:00 | NUR ---
BEDRESTING. AWAKE. ALERT. CALLING OUT FOR SOMEONE TO "COME TALK TO ME". C/O DID NOT KNOW WHAT WAS GOING TO HAPPEN TO HER ANIMALS OR HER HOME. VOICED CONCERN ABOUT THE HURRICANE.
--- NOTE | 2019-12-19 03:40 | NUR ---
REMAINS AWAKE. C/O NEEDING TO URINATE. REPEATEDLY INSTRUCTED THAT SHE HAS A HERNANDEZ AND WOULD FEEL THE URGE TO VOID BUT HER BLADDER IS BEING DRAINED. PT NOT ACCEPTING REDIRECTION WELL AT THIS TIME
[2019-12-19 04:00] VITALS: BP 153/71
--- NOTE | 2019-12-19 04:17 | NUR ---
TALKING. NO DISTRESS NOTED. WANTING TO GET OUT OF BED AND GO HOME. REMINDED OF HER HAVING SEIZURES AND NEED FOR HER TO BE SAFE. SHE AGREED TO REMAIN IN BED AT THIS TIME
[2019-12-19 05:10] LABS: HEMATOCRIT 29.4 % (37.0-47.0); HEMOGLOBIN 9.1 g/dl (12.0-16.0); MEAN CELL VOLUME 106.1 fL CALC (80.0-100.0); MEAN CORPUSCULAR HGB 32.9 pG CALC (26.0-32.0); RED BLOOD COUNT 2.77 mill/uL (4.20-5.60); RED CELL DISTRI WIDTH 14.6 % (11.5-15.5)
--- NOTE | 2019-12-19 05:17 | NUR ---
WATCHING TV. SAID THAT EVERY TIME SHE IS ON THAT LIFE SUPPORT SHE FEELS TERRIBLE FOR DAYS WHEN SHE COMES OFF. REMAINS ALERT. COOPERATIVE
[2019-12-19 05:40] LABS: ALBUMIN 3.1 g/dL (3.2-5.0); ALKALINE PHOSPHATASE 158 u/l (38-126); ANION GAP 10 (6-22 (CALC)); BUN 2 mg/dL (8-23); BUN/CREATININE RATIO 6 (12-20 (CALC)); CARBON DIOXIDE 25 mmol/l (22-30); CHLORIDE 109 mmol/l (95-108); CREATININE 0.4 mg/dL (0.5-1.0); GFR > 60 ML/MIN (>=60 (CALC)); GFR FOR AFR.AMER. > 60 ML/MIN (>=60 (CALC)); POTASSIUM 3.1 mmol/l (3.5-5.1); SGOT/AST 47 u/l (9-36); SODIUM 141 mmol/l (137-146); TOTAL PROTEIN 5.9 g/dL (6.3-8.2)
[2019-12-19 05:41] LABS: BILIRUBIN, TOTAL 0.7 mg/dL (0.0-1.4)
[2019-12-19 07:15] VITALS: BP 153/71
--- NOTE | 2019-12-19 07:26 | NUR ---
PT RESTING QUIETLY ON BED, IV FLUIDS INFUSING.
--- NOTE | 2019-12-19 09:05 | NUR ---
PT TO CHAIR PER DR. CASTANEDA , STATES FEELS MUCH BETTER, BREAKFAST TRAY GIVEN AND PT IS EATING AND DRINKING FINE. VITAL SIGNS REMAIN STABLE.
--- NOTE | 2019-12-19 09:17 | NUR ---
Patient may benefit from and O.T. Consult.
--- NOTE | 2019-12-19 09:49 | NUR ---
PT REMAINS STABLE, SITTING UP IN BED, EATING BREAKFAST
--- NOTE | 2019-12-19 09:51 | NUR ---
Pt screened for speech therapy. Pt would benefit from ST orders at this time. Discussed with medical provider.
--- NOTE | 2019-12-19 10:32 | NUR ---
PT GOT UP FROM CHAIR AND PLACED SELF BACK INTO BED BEFORE SSTAFF COULD GO INTO ROOM, STATES HAD NO PROBLEM, VITAL SIGNS STABLE
[2019-12-19 10:35] VITALS: BP 148/71
--- NOTE | 2019-12-19 11:21 | NUR ---
CASE MANAGEMENT SPEAKING WITH PT.
--- NOTE | 2019-12-19 12:56 | NUR ---
REMOVED HERNANDEZ CATHETER, PT UP TO BEDSIDE COMMODE ON OWN
--- NOTE | 2019-12-19 13:33 | NUR ---
PHYSICAL THERAPY HERE SPEAKING WITH PT.
--- NOTE | 2019-12-19 14:07 | NUR ---
SPOKE WITH PTS DAUGHTER AND SHE STATES THAT THE DNR PAPERS IS NO VENT, NO CPR, BUT YES TO COMFORT MEASURES, FLUIDS, ANTIBIOTICS, OXYGEN. DAUGHTER SSTATES THAT PTS , JOSSUE, WHO PT RESIDES WITH IN SAME ROOM AT [facility], WAS SENT TO ER THIS AM FOR COMPLAINTS OF COUGH/CONGESTION, BUT WAS SENT BACK TO [place] WITHOUT ADMISSION.
--- NOTE | 2019-12-19 14:12 | NUR ---
PT RESTING QUIETLY ON BED AFTER GETTING UP TO URINATE IN BEDSIDE COMMODE. DENIES ANY COMPLAINTS AT THIS TIME. APPEARS TO BE CALM AND PLEASANT, ALERT/ORIENTED X3.
--- NOTE | 2019-12-19 14:35 | NUR ---
PT CALLED THIS STAFF INTO ROOM AND SAID THAT SHE HAD CALLED DR. FORTE OFFICE AND LET HIM KNOW SHE DID NOT THINK SHE WAS READY TO GO HOME AFTER TALKING WITH PT.
--- NOTE | 2019-12-19 14:42 | NUR ---
PATIENT APPEARED SLEEPY, WEAK, AND UNSTEADY ON HER FEET. PATIENT PERFORMED BED MOBILITY (SUPINE ,> SIT) AND SIT TO STAND X CGA/MIN-A FOR SAFETY AND STABILITY. GAIT TRAINING USING WALKER X 15 FEET X CGA/MIN-A, RETROPULSIVE GAIT AND INCREASED INSTABILITY DUE TO WEAKNESS, IMPAIRED STANDING BALANCE, AND SLEEPINESS. [facility] = 14
--- NOTE | 2019-12-19 15:10 | NUR ---
PT REQUESTING SOMETHING FOR PAIN FOR GENERALIZED OVERALL DISCOMFORT
--- NOTE | 2019-12-19 15:58 | NUR ---
NOTICED PT MOVING LEFT ARM UP AND DOWN, PT WILL SQUEEZE HAND USING LEFT HAND ON VERBAL COMMAND
--- NOTE | 2019-12-19 17:19 | NUR ---
PT RESTING QUIETLY ON BED, WAITING FOR DINNER TRAY. DENIES ANY PAIN AT THIS TIME
--- NOTE | 2019-12-19 17:30 | NUR ---
PT GOT UP TO CHAIR FOR DINNER TRAY, PT VERY SHAKEY AND WEAK WHEN WALKING THERE. NEEDED HELP
--- NOTE | 2019-12-19 17:40 | NUR ---
PT SITTING UP ON CHAIR EATING DINNER TRAY. REQUESTING MORE MILK AND JUICE. PT DOES NOT LIKE TEA OR COFFEE.
--- NOTE | 2019-12-19 17:58 | NUR ---
BIOFIRE OBTAINED FROM RIGHT NARE. AND SENT TO LAB
--- NOTE | 2019-12-19 19:00 | NUR ---
RECEIVED REPORT. BEDRESTING. RESP EVEN AND NONLABORED. NO DISTRESS NOTED
[2019-12-19 20:00] VITALS: BP 125/54
--- NOTE | 2019-12-19 20:09 | NUR ---
BEDRESTING. NO DISTRESS
--- NOTE | 2019-12-19 21:00 | NUR ---
ALERT. TALKATIVE. TOOK HS MEDS-TOLERATED WELL
--- NOTE | 2019-12-19 22:30 | NUR ---
REQUESTED MEDICATION TO REST. ATIVAN GIVEN PER REQUEST. PT RESPONDED "THANK GOD BECAUSE TYLENOL DOESN'T DO SHIT". AFTER PT RESUMED WATCHING TV. ANXIOUS AND MOVING ABOUT IN BED-AD MANINDER
[2019-12-19 23:00] VITALS: BP 90/47
--- NOTE | 2019-12-19 23:56 | NUR ---
RESTING QUIETLY. EYES CLOSED. TV OFF
[2019-12-20] VITALS (9 sets, daily range): BP systolic 99–169; BP diastolic 52–87
--- NOTE | 2019-12-20 00:30 | NUR ---
BEDRESTING. NO DISTRESS NOTED. STATED THAT SHE WAS SO WEAK WITH PT TODAY THAT SHE COULD NOT WALK BY HERSELF
--- NOTE | 2019-12-20 02:28 | NUR ---
BEDRESTING. TV OFF. EYES CLOSED. ON ROOM AIR. O2 SAT 92%
--- NOTE | 2019-12-20 04:15 | NUR ---
BEDRESTING. RESP EVEN AND NONLABORED. NO COUGH OR COMPLAINT OF PAIN AT THIS TIME
--- NOTE | 2019-12-20 07:22 | NUR ---
REPORT RECEIVED FROM BUSTER HUERTAS. PT RESTING IN BED ON LEFT SIDE; ALERT AND OREINTED. CENTRAL LINE TO RIGHT NECK FLUSHED AND LABS OBTAINED. DENIES PAIN, DOES C/O SORE THROAT. RESPIRATIONS EVEN AND UNLABORED ON ROOM AIR; SPO2 91%; PT DENIES SOB. PT STATES, "I FEEL WORSE NOW THEN WHEN I GOT HERE." POC REVIEWED. PT ENCOURAGED TO VERBALIZE CONCERNS. STATES UNDERSTANDING. SAFETY MEASURES IN PLACE. CALL LIGHT WITHIN REACH.
[2019-12-20 07:31] LABS: HEMOGLOBIN 7.9 g/dl (12.0-16.0); IMMATURE GRANULOCYTES 0.2 % (0.0-5.0); MEAN CELL VOLUME 107.4 fL CALC (80.0-100.0); MEAN CORPUSCULAR HGB 32.6 pG CALC (26.0-32.0); MEAN CORPUSCULAR HGB CONC 30.4 g/dL CAL (32.0-36.0); NEUT# 3.17 thou/uL (2.00-7.15); RED BLOOD COUNT 2.42 mill/uL (4.20-5.60)
[2019-12-20 07:51] LABS: ANION GAP 9 (6-22 (CALC)); BUN 7 mg/dL (8-23); BUN/CREATININE RATIO 12 (12-20 (CALC)); CARBON DIOXIDE 26 mmol/l (22-30); CHLORIDE 110 mmol/l (95-108); CREATININE 0.6 mg/dL (0.5-1.0); GFR > 60 ML/MIN (>=60 (CALC)); GFR FOR AFR.AMER. > 60 ML/MIN (>=60 (CALC)); POTASSIUM 3.2 mmol/l (3.5-5.1); SODIUM 142 mmol/l (137-146)
--- NOTE | 2019-12-20 08:20 | NUR ---
DR. CASTANEDA AT BEDSIDE FOR EVAL AND TO DISCUSS POC INCLUDING PHYSICAL THERAPY FOR STRENGTHENING AND TRANSFER ORDERS TO MEDSUR UNIT. PT SITTING UP; ATE 100% OF BREAKFAST. ALERT AND ORIENTED.
--- NOTE | 2019-12-20 10:10 | NUR ---
SPEECH THERPAY AT BEDSIDE FOR COGNITIVE EVAL. PT SWALLOWS FOOD WITHOUT DIFFICULTY AND TOOK MEDICATIONS WHOLE WITH WATER.
--- NOTE | 2019-12-20 10:27 | NUR ---
PHYSICAL THERAPY AT BEDSIDE.
--- NOTE | 2019-12-20 10:38 | NUR ---
AMBULATING IN HALLWAY WITH WALKER AND THERAPY.
--- NOTE | 2019-12-20 11:08 | NUR ---
GAIT TRAINING USING WALKER X 50 FEET X CGA FOR SAFETY. PATIENT DEMONSTRATED IMPORVED POSTURE, GAIT PATTERN, AND STABILITY. PATIENT PERFORMED BED MOBILITY (SUPINE <> SIT) X SBA AND PERFOMED TRANSFER TO [facility] USING WALKER X CGA/SBA FOR SAFETY, PATIENT DEMONSTRATED IMPROVED SAFETY AWARENESS AND GOOD SEQUENCING. PATIENT PERFORMED AROME ON BLE IN SITTING POSITION: KNEE EXTENSION AND FLEXION X 20 REPS, BILATERALLY. HIP FLEXION X 10 REPS, BILATERALLY. ANKLE DF AND PF X 20 REPS, BILATERALLY. AMPAC = 16
--- NOTE | 2019-12-20 11:40 | NUR ---
DRESSING TO CENTRAL LINE REPLACED. LORTAB GIVEN FOR 9/10 HEAD AND NECK PAIN. ZOSYN INFUSING AT THIS TIME.
--- NOTE | 2019-12-20 12:19 | NUR ---
UP TO CHAIR FOR LUNCH. HEADACHE IS BETTER AFTER LORTAB. PT IS TALKATIVE AND FRIENDLY.
--- NOTE | 2019-12-20 15:25 | NUR ---
TELEPHONE REPORT GIVEN TO BUSTER CALDERON.
--- NOTE | 2019-12-20 15:42 | NUR ---
TRANSPORTED TO ROOM 270 VIA WHEELCHAIR IN STABLE CONDITION.
--- NOTE | 2019-12-21 00:31 | NUR ---
RECIEVED REPORT FROM BUSTER CIU.PT RESTING IN SEMI FOWLERS POSITIONS UPON ENTERING ROOM. INTRODUCED SELF TO PT AND DISCUSSED POC. PT IS A/O X2. ASSESSMENT AND VITALS OBTAINED. RESPRIATIONS ARE EVEN AND UNLABORED WITH NO SIGNS OF DISTRESS NOTED. LUNG SOUNDS ARE CLEAR. HEART RHYTHM IS NORMAL. BOWEL SOUNDS ARE ACTIVE IN ALL QUADRANTS, LAST REPORTED BM 12/18/2019. RADIAL AND PEDAL PULSES STRONG WITH NORMAL CAPILLARY REFILL. RIGHT TRIPLE LUMEN IJ FLUSHED WITH GOOD BLOOD FLOOW FROM 2/3 HUBS. WHITE HUB FLUSHES NUT NO BLOOS RETURN. IVF PER ORDERED. PT COMPLAINS OF 8/10 PAIN. PT TO BE MEDICATED PER EMAR. PT DENIES OF ANY ADDITIONAL NEEDS AT THIS TIME. ALL SAFETY PRECAUTIONS ARE IN PLACE WITH CALL LIGHT IN REACH. WILL CONTINUE TO MONITOR
--- NOTE | 2019-12-21 00:58 | NUR ---
PT COMPLAINS OF ITCHING IN TROAT NECK AND ARMS. MD NOTIFIED, ORDERS FOR BENADRYL OBTAINED. AWAITING FOR BERIFICATION FROM PHARMACY. RESPIRATIONS ARE EVEN AND UNLABORE DWITH NO SIGNS OF DSIRTESS NOTED. PT DENIES ANY ATTIONAL NEEDS AT THIS TIME. ALL SFAETY PRECAUTIONS ARE IN PLACE WIHT CALL LIGHT IN REACH. WILL CONTINUE TO MONITOR
[2019-12-21 04:00] VITALS: BP 147/75
--- NOTE | 2019-12-21 04:01 | NUR ---
PT RESTING IN SEMI FOWLERS POSITION WATCHING TV. RESPIRATIONS ARE EVEN AND UNLABORED WITH NO SIGNS OF DISTRESS NOTED. NO SIGNS OF ANY DISCOMFORT AT THIS TIME. ALL SAFTEY PRECAUTIONS ARE IN P[LACE WITH CALL LIGHT IN REACH.WILL CONTINUE TO MONITOR
--- NOTE | 2019-12-21 08:40 | NUR ---
ASSESSMENT DONE . PT IS A&O X3. PT DENIES PAIN AT THIS TIME. IVF INFUSING WELL. RESPS EVEN AND UNLABORED. PT STATED HAS NOT HAD BM FOR A FEW DAYS. WILL REASESS PT LATER RE: BM. PT DENIES ANY OTHER NEEDS AT THIS TIME. CALL LIGHT IN REACH.
[2019-12-21 08:50] VITALS: BP 170/58
[2019-12-21 10:30] VITALS: BP 139/45
--- NOTE | 2019-12-21 10:43 | NUR ---
Physical Therapy Note Patient identified by dipesh and date of PT Management 1. Supine to sit and sit to supine 2. Bed to chair and chair to bed transfer 3. Sit to stand and stand to sit 4. AROME of the UE x 10 repetitions x 2 sets, sitting 5. AROME of the LE x 10 repetitions x 2 sets, sitting 6. Ambulation between bed to chair and chair to bed. Patient was able to perform all execises with minimal fatigue. Unsteadiness still observed when patient sits and stand and attempts to transfer. Patient's call button placed within reach prior to leaving the room. AM-PAC:16
[2019-12-21] MEDS ORDERED: AMOXICILLIN500 MG PO (11:40)
--- NOTE | 2019-12-21 12:15 | NUR ---
PT DENIES ANY PAIN AT THIS TIME. PT STATED NO BM YET. PT STATED THAT HER NORMAL TO NOT HAVE BM EVERY DAY. PT REFUSED THE MILK MAG. PROVIDED PT WITH PRUINE JUICE. PT DENIES ANY OTHER NEEDS AT THIS TIME. CALL LIGHT IN REACH.
--- NOTE | 2019-12-21 13:45 | NUR ---
Discharge instructions given. Patient verbalizes understanding of same. Discharged in stable condition via Wheelchair to Home with spouse. All belongings sent with pt. RIJ WAS REMOVED AND LENGTH WAS 15CM.
== END 2019-12-21 14:19 | disposition home or self-care (01) | DRG 100 ==
LOC: ED 14:47 → ED-I 16:03 → ED 16:03 → ED-I 18:50 → ED 19:04 → ICU 19:05 → MS2 12-20 15:38
PROVIDERS: Family Medicine; ADMIT Internal Medicine; ATTEND Internal Medicine
PROC: 0BH17EZ Insertion of Endotracheal Airway into Trachea, Via Natural or Artificial Opening (ICD-10-PCS; principal; 2019-12-17)
PROC: 5A1935Z Respiratory Ventilation, Less than 24 Consecutive Hours (ICD-10-PCS; 2019-12-17)
PROC: 0T9B70Z Drainage of Bladder with Drainage Device, Via Natural or Artificial Opening (ICD-10-PCS; 2019-12-17)
PROC: 02HV33Z Insertion of Infusion Device into Superior Vena Cava, Percutaneous Approach (ICD-10-PCS; 2019-12-17)
DX: G40.909 Epilepsy, unspecified, not intractable, without status epilepticus (principal); J96.01 Acute respiratory failure with hypoxia; E87.2 Acidosis; D72.829 Elevated white blood cell count, unspecified; T17.908A Unspecified foreign body in respiratory tract, part unspecified causing other injury, initial encounter; I10 Essential (primary) hypertension; E78.5 Hyperlipidemia, unspecified; F10.10 Alcohol abuse, uncomplicated; F31.9 Bipolar disorder, unspecified; F17.290 Nicotine dependence, other tobacco product, uncomplicated; Z86.73 Personal history of transient ischemic attack (TIA), and cerebral infarction without residual deficits; Z20.828 Contact with and (suspected) exposure to other viral communicable diseases
CPT/HCPCS: G0378; J1953; J2060

== ENCOUNTER 2019-12-24 19:58 | Emergency (ER) | payer MEDICARE ==
[~2019-12-24] VITALS: Ht 160 cm; Wt 42.0 kg
[~2019-12-24 19:58] MED LIST changes: +AMOXICILLIN500 MG PO; +CITALOPRAM10 M1 PO; +DILT-XR180 MG PO; +PROTONIX40 M2 PO
[2019-12-24] MEDS ORDERED: AMOXICILLIN500 MG PO (21:08)
[2019-12-24 21:10] LABS: HEMATOCRIT 28.8 % (37.0-47.0); HEMOGLOBIN 9.1 g/dl (12.0-16.0); RED BLOOD COUNT 2.73 mill/uL (4.20-5.60)
[2019-12-24 21:11] LABS: BASO% 0 % (0-3); EOS% 0 % (0-8); LYMPH% 33 % (15-41); MEAN CELL VOLUME 105.5 fL CALC (80.0-100.0); MEAN CORPUSCULAR HGB 33.3 pG CALC (26.0-32.0); MEAN CORPUSCULAR HGB CONC 31.6 g/dL CAL (32.0-36.0); MONO% 11 % (2-13); NEUT% 56 % (42-76); PLATELET COUNT 213 thou/uL (130-400); RED CELL DISTRI WIDTH 14.6 % (11.5-15.5)
[2019-12-24 21:27] LABS: ALBUMIN 3.6 g/dL (3.2-5.0); ALKALINE PHOSPHATASE 201 u/l (38-126); ANION GAP 10 (6-22 (CALC)); BUN 9 mg/dL (8-23); BUN/CREATININE RATIO 20 (12-20 (CALC)); CARBON DIOXIDE 27 mmol/l (22-30); CHLORIDE 106 mmol/l (95-108); CREATININE 0.5 mg/dL (0.5-1.0); ETHYL ALCOHOL 0 mg/dl (0-30); GFR > 60 ML/MIN (>=60 (CALC)); GFR FOR AFR.AMER. > 60 ML/MIN (>=60 (CALC)); POTASSIUM 3.8 mmol/l (3.5-5.1); SGOT/AST 24 u/l (9-36); SODIUM 139 mmol/l (137-146)
[2019-12-24 21:29] LABS: BILIRUBIN, TOTAL 0.3 mg/dL (0.0-1.4)
[2019-12-24 21:39] LABS: MYOGLOBIN 27 ng/mL (0 - 62)
[2019-12-24 22:41] LABS: URINE BILIRUBIN - DIPSTICK NEGATIVE (NEGATIVE); URINE BLOOD DIPSTICK NEGATIVE (NEGATIVE); URINE COLOR YELLOW; URINE GLUCOSE - DIPSTICK NEGATIVE (NEGATIVE); URINE KETONE NEGATIVE (NEGATIVE); URINE LEUK ESTERASE NEGATIVE (NEGATIVE); URINE NITRITE - DIPSTICK NEGATIVE (Negative); URINE PROTEIN - DIPSTICK NEGATIVE (NEG-TRACE); URINE UROBILINOGEN - DIPSTICK 0.2 E.U./dL (0.2)
[2019-12-24 22:58] VITALS: BP 195/84
== END 2019-12-24 23:11 | disposition home or self-care (01) ==
LOC: ED 19:58
PROVIDERS: Emergency Medicine
DX: R53.1 Weakness (principal); G40.909 Epilepsy, unspecified, not intractable, without status epilepticus; I10 Essential (primary) hypertension; F10.10 Alcohol abuse, uncomplicated; E78.5 Hyperlipidemia, unspecified; F31.9 Bipolar disorder, unspecified; R63.6 Underweight; Z86.73 Personal history of transient ischemic attack (TIA), and cerebral infarction without residual deficits

== ENCOUNTER 2020-01-21 20:22 | Emergency (ER) | payer MEDICARE ==
[~2020-01-21] VITALS: Ht 160 cm; Wt 47.0 kg
[2020-01-21 21:33] LABS: HEMATOCRIT 37.2 % (37.0-47.0); HEMOGLOBIN 11.5 g/dl (12.0-16.0); IMMATURE GRANULOCYTES 0.2 % (0.0-5.0); MEAN CELL VOLUME 98.7 fL CALC (80.0-100.0); MEAN CORPUSCULAR HGB 30.5 pG CALC (26.0-32.0); MEAN CORPUSCULAR HGB CONC 30.9 g/dL CAL (32.0-36.0); NEUT# 5.88 thou/uL (2.00-7.15); RED BLOOD COUNT 3.77 mill/uL (4.20-5.60); RED CELL DISTRI WIDTH 14.7 % (11.5-15.5)
[2020-01-21 21:47] LABS: ALBUMIN 4.3 g/dL (3.2-5.0); ALKALINE PHOSPHATASE 192 u/l (38-126); ANION GAP 18 (6-22 (CALC)); BILIRUBIN, TOTAL 0.4 mg/dL (0.0-1.4); BUN 13 mg/dL (8-23); BUN/CREATININE RATIO 26 (12-20 (CALC)); CARBON DIOXIDE 22 mmol/l (22-30); CHLORIDE 99 mmol/l (95-108); CREATININE 0.5 mg/dL (0.5-1.0); GFR > 60 ML/MIN (>=60 (CALC)); GFR FOR AFR.AMER. > 60 ML/MIN (>=60 (CALC)); POTASSIUM 4.5 mmol/l (3.5-5.1); SGOT/AST 28 u/l (9-36); SODIUM 134 mmol/l (137-146); TOTAL PROTEIN 8.4 g/dL (6.3-8.2)
[2020-01-21 21:59] LABS: MYOGLOBIN 204 ng/mL (0 - 62)
[2020-01-21 22:20] LABS: URINE BILIRUBIN - DIPSTICK NEGATIVE (NEGATIVE); URINE BLOOD DIPSTICK TRACE-INTACT (NEGATIVE); URINE COLOR YELLOW; URINE GLUCOSE - DIPSTICK NEGATIVE (NEGATIVE); URINE KETONE NEGATIVE (NEGATIVE); URINE LEUK ESTERASE NEGATIVE (NEGATIVE); URINE NITRITE - DIPSTICK NEGATIVE (Negative); URINE PH 5.5 (4.5-8.0); URINE PROTEIN - DIPSTICK 30 mg/dL (NEG-TRACE); URINE SPECIFIC GRAVITY >=1.030; URINE UROBILINOGEN - DIPSTICK 0.2 E.U./dL (0.2)
[2020-01-21 22:23] LABS: URINE RBC 0-2 RBC/hpf (0-5); URINE SQUAMOUS EPITHELIAL CELL FEW EPI/hpf (0-FEW); URINE WBC 0-2 WBC/hpf (0-5)
[2020-01-22] MEDS ORDERED: CEPHALEXIN500 MG PO (00:03)
[2020-01-22 00:51] VITALS: BP 150/81
== END 2020-01-22 00:29 | disposition home or self-care (01) ==
LOC: ED 20:22
PROVIDERS: Emergency Medicine
DX: N30.90 Cystitis, unspecified without hematuria (principal); R53.1 Weakness; I10 Essential (primary) hypertension; F10.10 Alcohol abuse, uncomplicated; E78.5 Hyperlipidemia, unspecified; F31.9 Bipolar disorder, unspecified; Z86.73 Personal history of transient ischemic attack (TIA), and cerebral infarction without residual deficits; Z20.828 Contact with and (suspected) exposure to other viral communicable diseases

== ENCOUNTER 2020-08-14 00:26 | Emergency (ER) | payer MEDICARE ==
[~2020-08-14] VITALS: Ht 160 cm; Wt 51.0 kg
[~2020-08-14 00:26] MED LIST changes: +CEPHALEXIN500 MG PO
[2020-08-14] MEDS ORDERED: PREDNISONE50 MG PO ×2 (00:52→01:56)
[2020-08-14 01:45] VITALS: BP 166/82
== END 2020-08-14 02:00 | disposition home or self-care (01) ==
LOC: ED 00:26
DX: L23.81 Allergic contact dermatitis due to animal (cat) (dog) dander (principal); I10 Essential (primary) hypertension; E78.5 Hyperlipidemia, unspecified; F31.9 Bipolar disorder, unspecified; Z86.73 Personal history of transient ischemic attack (TIA), and cerebral infarction without residual deficits

== ENCOUNTER 2020-11-05 20:29 | Inpatient (IN) | payer MEDICARE ==
[~2020-11-05] VITALS: Ht 160 cm; Wt 63.0 kg
[~2020-11-05 20:29] MED LIST changes: +PREDNISONE50 MG PO
--- NOTE | 2020-11-05 20:29 | NUR ---
PT ARRIVES VIA EMS STRETCHER TO ROOM WITH IGEL IN PLACE.
--- NOTE | 2020-11-05 20:50 | NUR ---
DR WHITMORE BEDSIDE FOR PREPARATION OF INTUBATION. RSI DRUGS ADMINISTERED PER PROTOCOL AND MD ORDER ETOMIDATE 20MG IVP BY DR WHITMORE ROCURONIUM [address] WHITMORE # 8 ET PLACED, 23CM @ LIP-- POSITIVE CO2 DETECTOR CHANGE AND LS NOTED BILATERALLY. UNABLE TO OBTAIN OG/NGT AT THIS TIME, DR WHITMORE NOTIFIED.
--- NOTE | 2020-11-05 20:55 | NUR ---
DIPRIVAN INTIATED PER ORDER AND INFUSING WITHOUT DIFF. PT CURRENLTY ON VENTILATOR. MARINA PORTER IN PLACE.
--- NOTE | 2020-11-05 21:00 | NUR ---
PT NOTED WITH TEARING AND MEDICATED WITH FENTANYL PER MD ORDER.
--- NOTE | 2020-11-05 21:08 | NUR ---
INTUBATED WITH AN 8.0 ETT. VERIFIED BY LISTENING OF BREATH SOUND, CO2 DETECTOR AND THEN X-RAY. PLACED ON VENTILATOR WITH THE FOLLOWING SETTING AC 22, VT 400, 5 OF PEEP WITH 100% FIO2.
[2020-11-05 21:23] LABS: HEMATOCRIT 36.5 % (37.0-47.0); HEMOGLOBIN 10.9 g/dl (12.0-16.0); IMMATURE GRANULOCYTES 0.3 % (0.0-5.0); MEAN CORPUSCULAR HGB 32.3 pG CALC (26.0-32.0); MEAN CORPUSCULAR HGB CONC 29.9 g/dL CAL (32.0-36.0); NEUT# 7.24 thou/uL (2.00-7.15); RED BLOOD COUNT 3.37 mill/uL (4.20-5.60); RED CELL DISTRI WIDTH 14.7 % (11.5-15.5)
[2020-11-05 21:27] LABS: MEAN CELL VOLUME 108.3 fL CALC (80.0-100.0)
[2020-11-05 21:35] LABS: ALBUMIN 4.1 g/dL (3.2-5.0); ALKALINE PHOSPHATASE 181 u/l (38-126); ANION GAP 10 (6-22 (CALC)); BILIRUBIN, TOTAL 0.4 mg/dL (0.0-1.4); BUN 16 mg/dL (8-23); BUN/CREATININE RATIO 24 (12-20 (CALC)); CARBON DIOXIDE 26 mmol/l (22-30); CHLORIDE 106 mmol/l (95-108); CREATININE 0.7 mg/dL (0.5-1.0); ETHYL ALCOHOL 0 mg/dl (0-30); GFR > 60 ML/MIN (>=60 (CALC)); GFR FOR AFR.AMER. > 60 ML/MIN (>=60 (CALC)); PHENYTOIN (DILANTIN) 9 ug/mL (10 - 20); POTASSIUM 4.8 mmol/l (3.5-5.1); SODIUM 137 mmol/l (137-146); TOTAL PROTEIN 7.6 g/dL (6.3-8.2)
[2020-11-05 21:38] LABS: SGOT/AST 63 u/l (9-36)
[2020-11-05 21:44] LABS: MYOGLOBIN 58 ng/mL (0 - 62)
--- NOTE | 2020-11-05 22:20 | NUR ---
PT TRANSPORTED TO CT VIA NURSE AND RT
--- NOTE | 2020-11-05 22:40 | NUR ---
PT RETURNED FROM CT IN STABLE CONDITION. PLACED ON CARDIAC MONITIOR. CONTINUATION OF VENT. SKIN COOL AND DRY. WARM BLANKETS PLACED. AWAITING RESULTS AND PLAN.
--- NOTE | 2020-11-05 22:50 | NUR ---
DILANTIN ORDER INITIATED TO RIGHT HAND EMS SITE PER MD ORDER.
--- NOTE | 2020-11-05 22:55 | NUR ---
IV SITE WITH DILANTIN INFUSING NOTEABLE SWELLING AND REDNESS, MEDICAITON STOPPED AND WARM PACK APPLIED AND ELEVATED. SECONDARY IV INTIATED BY DAVID GOINS TO [facility] AND MEDICAITON SWITCHED TO SITE.
[2020-11-06] VITALS (32 sets, daily range): BP systolic 68–169; BP diastolic 40–83
--- NOTE | 2020-11-06 | NUR ---
HERNANDEZ CATHETER PLACED BY JACQUELINE CEE, SMALL AMOUNT OF URINE RETURN NOTED . DR WHITMORE NOTIFIED.
[2020-11-06 00:49] LABS: URINE BILIRUBIN - DIPSTICK NEGATIVE (NEGATIVE); URINE BLOOD DIPSTICK TRACE-INTACT (NEGATIVE); URINE COLOR YELLOW; URINE GLUCOSE - DIPSTICK 100 mg/dL (NEGATIVE); URINE KETONE NEGATIVE (NEGATIVE); URINE LEUK ESTERASE SMALL (NEGATIVE); URINE NITRITE - DIPSTICK NEGATIVE (Negative); URINE PROTEIN - DIPSTICK TRACE mg/dL (NEG-TRACE); URINE SPECIFIC GRAVITY 1.015; URINE UROBILINOGEN - DIPSTICK 0.2 E.U./dL (0.2)
[2020-11-06 00:50] LABS: URINE BACTERIA FEW hpf; URINE SQUAMOUS EPITHELIAL CELL FEW EPI/hpf (0-FEW)
--- NOTE | 2020-11-06 01:00 | NUR ---
PT RESTING ON STRETCHER, VENT IN PLACE-SEE RT NOTES FOR SETTINGS. DIPRIVAN @ 50 MCG/KG/MIN
--- NOTE | 2020-11-06 02:22 | NUR ---
REPORT CALLED TO [facility]AD[facility] GOINS ICU
--- NOTE | 2020-11-06 02:50 | NUR ---
SECONDARY DIPRIVAN BOTTLE PULLED AND INITIATED. PT TOLERATING WELL. CONTINUES ON VENT. SPRAY UNIT FEEDER IN PLACE. RASS -3
--- NOTE | 2020-11-06 03:15 | NUR ---
PT MEDICATED WITH VALIUM IV PRIOR TO TRANSPORT DUE TO INCREASED AGITATION.
--- NOTE | 2020-11-06 03:25 | NUR ---
PATIENT ARRIVES ON PORTABLE VENTILATOR. WAS TRANSFERRED OVER TO ICU BED 8. VENT SEETINGS ASSIST CONTROL RATE 22, TV 400, FIO2 35%, PEEP 5, SPO2 100%. SIZE 8 ET TUBE, 23 CM AT THE LIP. SHE DOES HAVE NOTABLE BILAT NECK SWELLING, ER DOCTOR AWARE. HAS A HERNANDEZ CATHETER/INTACT. PROPOFOL INFUSING AT 50 MCG/KG/MIN, TITRATED TO 60 DUE TO PATIENT RASS -2 DOES OPEN EYES WITH PAINFUL STIMULUI. SBP 160'S SYSTOLIC. HR 90'S, SINUS RHYTHM. SCD'S PLACED, RESTRAIMTS PLACED FOR AIRWAY PROTECTION. AFEBRILE. SKIN COOL/DRY/INTACT. NURSE ASSESSMENT PERFORMED, SEE CHARTING. DOES HAVE MODERATE SECRETIONS FROM MOUTH.
--- NOTE | 2020-11-06 03:25 | NUR ---
Admission Note Report Given to: MADISON RN Transported by: Wheelchair X Stretcher Transported with: X Nurse Transporter X Patent IV X O2 X Store Operations Manager Location: X ICU MS2 PT TRANSPORTED TO ICU VIA STRETCHER WITH NURSE, DIGITAL MARKETING LEAD AND RT. CARE TRANSFERED TO MADISON GOINS IN ICU. FURTHER REPORT PROVIDED.
--- NOTE | 2020-11-06 05:15 | NUR ---
NEW IV PLACED ON RFA 22 G DUE TO RAC IV LEAKING/BRUISED/RED. NS IV FLUIDS INFUSING THROUGH NEW RFA IV. PROPOFOL TITRATED TO 55 MCG/KG/MIN. RASS -3. BP WNL.
--- NOTE | 2020-11-06 06:05 | NUR ---
RT MANNY NOTIFIED ME, VENT SETTING RATE 16 NOW, AND FIO2 26%. SPO2 100%.
--- NOTE | 2020-11-06 07:50 | NUR ---
pt intubated and sedated; no apparent distress noted; assessment completed at this time; pt intubated; no s/sx of pain, facial grimaces noted; no n/v noted; resp even and unlabored; lungs clear bilat; skin color pale; vent intact and maintained with settings of AC mode, TV 400, rate 16, peep 5.0, FiO2 26%; 8.0 ETT intact and secured; neck swelling noted; hr reg; strong pulses; no edema noted; sr on monitor; abd soft with bs present; no bm noted per headline writer; no urine noted to medrano tubing or bag; will irrigate; cath strap intact; #22 patent to rfa with ivf infusing without complication; #22 to lh with propofol infusing at 55mcg/kg/min; no redness or edema noted at site; bilat scds; restraints released and reapplied for nursing care; will continue to monitor
--- NOTE | 2020-11-06 09:00 | NUR ---
no urine noted to catheter bag or tubing; senior copywriter at bedside to irrigate medrano; irrigation noted leaking/pooling in thigh area; pt repositioned and medrano noted dislodged with balloon infiltrated; Dr Waller at bedside and informed of findings; medrano to be held at this time pending extubation; will continue to monitor
--- NOTE | 2020-11-06 09:15 | NUR ---
propofol gtt titrated for possible extubation;
--- NOTE | 2020-11-06 09:30 | NUR ---
pt awake in bed; pt able to open eyes when name is called; pt able ot squeeze this account underwriter hand on command; RT at bedside for cuff leak check
--- NOTE | 2020-11-06 09:37 | NUR ---
pt fully awake sitting up in bed; follows instructions; restraints reinforced to prevent self extubation; will continue to monitor
--- NOTE | 2020-11-06 09:45 | NUR ---
propofol gtt resumed at 55mcg/kg/min due to failed cuff leak test per Dr Waller; pt to be medicated with steroids; will reassess later today for possible extubation; will continue to monitor
[2020-11-06] MEDS ORDERED: PROTONIX40 M2 PO (10:07)
[2020-11-06] MEDS ORDERED: KEPPRA750 M2 PO (10:07)
[2020-11-06] MEDS ORDERED: FOLIC ACID1 MG PO (10:07)
[2020-11-06] MEDS ORDERED: DILT-XR180 MG PO (10:07)
[2020-11-06] MEDS ORDERED: PHENYTOIN EX100 M1 PO (10:07)
--- NOTE | 2020-11-06 10:12 | NUR ---
intubated and sedated; no apparent distress noted; bladder scanned for 774cc; medrano to be placed; iv intact and patent; no redness or edema noted at sitess; st on monitor; will continue to monitor
--- NOTE | 2020-11-06 10:30 | NUR ---
16 Fr medrano attempted x2 per this comic book writer and Gregoria Morales RN using sterile technique; staff unsuccessful; abnormal vaginal anatomy/difficulty locating urinary meatus;
--- NOTE | 2020-11-06 11:00 | NUR ---
16Fr Coude catheter attempted per Randa Stevenson; unsuccessful; Dr Waller notified of inability to obtained medrano due to abnormal anatomy; orders received to consult urology
--- NOTE | 2020-11-06 11:45 | NUR ---
12Fr medrano catheter placed per Gregoria Tuttle RN (OR) using sterile technique; immed return of clear yellow urine draining slowly; cath strap applied; will continue to monitor
--- NOTE | 2020-11-06 12:00 | NUR ---
vented and sedated; no apparent distress noted; repositioned; oral care; medrano to gravity; sr on monitor; restraints continued; will continue to monitor
--- NOTE | 2020-11-06 14:00 | NUR ---
vented and sedated; repositioned; restraints continued; medrano to gravity; sr on monitor; will continue to monitor
--- NOTE | 2020-11-06 16:10 | NUR ---
vented and sedated; no apparent distress noted; repositioned; sr on monitor; will continue to monitor
--- NOTE | 2020-11-06 18:00 | NUR ---
pt remains intubated and sedated; no apparent distress noted; resp even and unlabored; no increased swelling noted of the neck area; iv intact and patent; no redness or edema noted at site; sr on monitor; medrano to gravity;
--- NOTE | 2020-11-06 19:05 | NUR ---
vent cont assisted by pt. no distress. cardiac technologist shows sinus rhythm hr 76. #22 rt foot saline lock. #20 lt hand diprivan infusing well. #22 rfa ns infusing @ 125cchr. medrano cath in place. urine clear yellow. bilat scds & fall precautions cont.
--- NOTE | 2020-11-06 22:00 | NUR ---
vent cont assisted by pt. ivf infusing well.
[2020-11-07] VITALS (27 sets, daily range): BP systolic 90–156; BP diastolic 48–76
--- NOTE | 2020-11-07 00:01 | NUR ---
vent cont assisted by pt. eyes closed. no distress.
--- NOTE | 2020-11-07 03:00 | NUR ---
bath & linen change x2 assists.
--- NOTE | 2020-11-07 04:00 | NUR ---
lab here. unable to draw.
--- NOTE | 2020-11-07 05:00 | NUR ---
xray here. pcxr obtained.
--- NOTE | 2020-11-07 05:25 | NUR ---
rt here. abgs drawn.
--- NOTE | 2020-11-07 07:05 | NUR ---
pt awake in bed but drowsy; no apparent distress noted; assessment completed at this time; pt intubated with light sedation; no n/v noted; pt nods head to deny pain; no resp distress noted; resp even and unlabored; lungs clear; skin color wnl; vent intact and maintained with settings of AC mode, rate 16, TV 400, peep 5.0, FiO2 of 30%; hr reg; weak pulses; edema noted to bilat hands; sr/st on monitor; abd soft with bs present; no bm noted per show card writer; medrano to gravity draining well; cath strap intact; #22 saline locked to right foot; #20 to lh saline locked; #22 to rfa patent with ivf and propofol gtt infusing at 40mcg/kg/min; no redness or edema noted at site; pt able to reposition self in bed as per show card writer command; plan of / meds/ extubation explained; call light within reach; will continue to monitor
[2020-11-07 08:37] LABS: HEMATOCRIT 31.7 % (37.0-47.0); HEMOGLOBIN 9.4 g/dl (12.0-16.0); IMMATURE GRANULOCYTES 0.1 % (0.0-5.0); MEAN CELL VOLUME 108.2 fL CALC (80.0-100.0); MEAN CORPUSCULAR HGB 32.1 pG CALC (26.0-32.0); MEAN CORPUSCULAR HGB CONC 29.7 g/dL CAL (32.0-36.0); NEUT# 5.09 thou/uL (2.00-7.15); RED BLOOD COUNT 2.93 mill/uL (4.20-5.60); RED CELL DISTRI WIDTH 14.8 % (11.5-15.5)
--- NOTE | 2020-11-07 09:04 | NUR ---
Dr Valdovinos present at bedside to assess pt and discuss plan of care; pt alert; pt able to follow all commands requested per staff; pt able to answer yes and no questions via head nod; will continue to monitor
[2020-11-07 09:06] LABS: ANION GAP 5 (6-22 (CALC)); BUN 7 mg/dL (8-23); BUN/CREATININE RATIO 15 (12-20 (CALC)); CARBON DIOXIDE 24 mmol/l (22-30); CHLORIDE 114 mmol/l (95-108); CREATININE 0.5 mg/dL (0.5-1.0); GFR > 60 ML/MIN (>=60 (CALC)); GFR FOR AFR.AMER. > 60 ML/MIN (>=60 (CALC)); MAGNESIUM 1.6 mg/dL (1.6-2.3); SODIUM 139 mmol/l (137-146)
[2020-11-07 09:07] LABS: POTASSIUM 3.8 mmol/l (3.5-5.1)
--- NOTE | 2020-11-07 09:19 | NUR ---
pt extubated at this time per RT Rajan per Dr Valdovinos verbal order; tolerated well; pt placed on 2L nc; o2 sat 100%; restraints discontinued; repositioned in bed; oral care per staff; sr on monitor; on unit; will continue to monitor
--- NOTE | 2020-11-07 09:19 | NUR ---
PT. EXTUBATED AND PLACED ON 2L NC
--- NOTE | 2020-11-07 10:11 | NUR ---
awake in bed; calm and cooperative; pt able to voice needs/ concerns; sr on monitor; o2 per nc at 2L; o2 sat 100; iv intact and patent; medrano to gravity; will continue to monitor
--- NOTE | 2020-11-07 11:15 | NUR ---
awake in bed; iv to rfa noted leaking; pt assisted to recliner; tolerated activity well; complete linen change; #22 removed from rfa with catheter tip intact; edema noted to bue worse in hands; po fluids provided and tolerated well; will continue to monitor
--- NOTE | 2020-11-07 12:05 | NUR ---
awake in recliner; offers no complaints; o2 per nc; medrano to gravity; clear liq diet provided; pt tolerating well; st on monitor; will continue to monitor
--- NOTE | 2020-11-07 14:05 | NUR ---
awake in recliner; no apparent distress noted; pt offers no complaints; medrano to gravity; st on monitor; o2 per nc; call light within reach; will continue to monitor
--- NOTE | 2020-11-07 16:10 | NUR ---
pt awake in recliner; wishing to be discharged; caption writer has spoken with pt and she will be dischanrged tomorrow; pt appreciative of this information; iv intact and saline locked; pt tolerating fluids well; medrano to gravity; ra at 95%; call light within reach; will continue to monitor
--- NOTE | 2020-11-07 17:30 | NUR ---
meal provided; pt requesting for catheter to be removed; will continue to monitor
--- NOTE | 2020-11-07 18:08 | NUR ---
awake in bed; offers no complaints; medrano catheter removed as per pt request; st on monitor; iv intact; call light within reach
--- NOTE | 2020-11-07 19:15 | NUR ---
awake. no resp distress. manager pathology shows sinus tach hr 102. #22 rt foot saline lock. po fluids taken well. hnv @ present. fall precautions cont.
--- NOTE | 2020-11-07 22:00 | NUR ---
eyes closed. no distress. monitoring specialist shows sinus tach hr 100.
[2020-11-08] VITALS (7 sets, daily range): BP systolic 136–154; BP diastolic 69–80
--- NOTE | 2020-11-08 00:27 | NUR ---
assisted to bsc. voided & had lg bm. pilar well.
--- NOTE | 2020-11-08 02:00 | NUR ---
resting quietly. resps even & unlabored. no distress.
--- NOTE | 2020-11-08 04:00 | NUR ---
eyes closed. cardiac cath lab radiology technologist shows sinus tach hr 102.
--- NOTE | 2020-11-08 06:07 | NUR ---
awake. no distress. air sampling and monitoring shows sinus rhythm hr 92.
--- NOTE | 2020-11-08 08:00 | NUR ---
PT AWAKE, ALERT, ORIENTED X 3. LUNGS CLEAR BUT DIMINISHED IN THE BASES, RA. PT UP TO BSC THIS MORNING WITH ASSIST, HAD BM AND VOIDED. PT ATE BREAKFAST. NO DISTRESS, NO SEIZURES, NO COMPLAINTS.
[2020-11-08] MEDS ORDERED: MEDDOSEPAK PO (08:45)
--- NOTE | 2020-11-08 10:00 | NUR ---
PT HAS BEEN DISCHARGED TO HOME. DR CASTANEDA EVALUATED PT, THOUGHT THAT SHE WAS DISCHARGEABLE. PT PROVIDED ALL OF HER AM MEDICATIONS PRIOR TO DISCHARGE. PT VERBALIZED UNDERSTANDING OF DC INSTRUCTIONS, WAS TAKEN TO LOBBY BY ROMMEL. PT LEAVES [facility] IN STABLE CONDITION.
== END 2020-11-08 09:45 | disposition home or self-care (01) | DRG 100 ==
LOC: ED 20:29 → ED-I 11-06 01:20 → ED 11-06 01:39 → ICU 11-06 01:40
PROVIDERS: Family Medicine; ADMIT Internal Medicine; ATTEND Internal Medicine
PROC: 0BH17EZ Insertion of Endotracheal Airway into Trachea, Via Natural or Artificial Opening (ICD-10-PCS; principal; 2020-11-05)
PROC: 5A1945Z Respiratory Ventilation, 24-96 Consecutive Hours (ICD-10-PCS; 2020-11-05)
PROC: 0T9B70Z Drainage of Bladder with Drainage Device, Via Natural or Artificial Opening (ICD-10-PCS; 2020-11-06)
DX: G40.409 Other generalized epilepsy and epileptic syndromes, not intractable, without status epilepticus (principal); J96.00 Acute respiratory failure, unspecified whether with hypoxia or hypercapnia; I10 Essential (primary) hypertension; D32.0 Benign neoplasm of cerebral meninges; E78.5 Hyperlipidemia, unspecified; F31.9 Bipolar disorder, unspecified; F17.290 Nicotine dependence, other tobacco product, uncomplicated; Z86.73 Personal history of transient ischemic attack (TIA), and cerebral infarction without residual deficits; Z20.822 Contact with and (suspected) exposure to COVID-19
CPT/HCPCS: J1650

== ENCOUNTER 2021-04-16 22:16 | Emergency (ER) | payer MEDICARE ==
[~2021-04-16] VITALS: Ht 160 cm; Wt 58.0 kg
[~2021-04-16 22:16] MED LIST changes: +FOLIC ACID1 MG PO; +MEDDOSEPAK PO; +PHENYTOIN EX100 M1 PO
[2021-04-16 22:36] VITALS: BP 168/90
[2021-04-16 22:45] VITALS: BP 162/83
[2021-04-16] MEDS ORDERED: PREDNISONE50 MG PO (22:49)
[2021-04-16 23:00] VITALS: BP 152/93
[2021-04-16 23:16] VITALS: BP 140/79
[2021-04-16 23:30] VITALS: BP 157/89
[2021-04-16 23:47] VITALS: BP 186/95
[2021-04-17] VITALS: BP 183/93
[2021-04-17 00:15] VITALS: BP 191/94
[2021-04-17 00:23] VITALS: BP 184/96
[2021-04-17 00:30] VITALS: BP 199/115
== END 2021-04-17 00:49 | disposition home or self-care (01) ==
LOC: ED 22:16
DX: L27.1 Localized skin eruption due to drugs and medicaments taken internally (principal); T45.0X5A Adverse effect of antiallergic and antiemetic drugs, initial encounter; T49.5X5A Adverse effect of ophthalmological drugs and preparations, initial encounter; I10 Essential (primary) hypertension; E78.5 Hyperlipidemia, unspecified; F31.9 Bipolar disorder, unspecified; R63.6 Underweight; Z87.891 Personal history of nicotine dependence; Z86.73 Personal history of transient ischemic attack (TIA), and cerebral infarction without residual deficits
CPT/HCPCS: J2060

== ENCOUNTER 2021-11-06 01:32 | Emergency (ER) | payer MEDICARE ==
[~2021-11-06] VITALS: Ht 160 cm; Wt 56.0 kg
[2021-11-06 01:42] VITALS: BP 140/107
[2021-11-06 01:45] VITALS: BP 148/66
[2021-11-06 02:00] VITALS: BP 157/80
[2021-11-06 02:10] LABS: HEMATOCRIT 39.7 % (37.0-47.0); HEMOGLOBIN 12.9 g/dl (12.0-16.0); IMMATURE GRANULOCYTES 0.4 % (0.0-5.0); MEAN CELL VOLUME 106.7 fL CALC (80.0-100.0); MEAN CORPUSCULAR HGB 34.7 pG CALC (26.0-32.0); MEAN CORPUSCULAR HGB CONC 32.5 g/dL CAL (32.0-36.0); NEUT# 3.34 thou/uL (2.00-7.15); RED BLOOD COUNT 3.72 mill/uL (4.20-5.60); RED CELL DISTRI WIDTH 12.7 % (11.5-15.5)
[2021-11-06 02:15] VITALS: BP 149/76
[2021-11-06 02:25] LABS: ALBUMIN 3.8 g/dL (3.2-5.0); ALKALINE PHOSPHATASE 207 u/l (38-126); BUN 4 mg/dL (8-23); BUN/CREATININE RATIO 8 (12-20 (CALC)); CARBON DIOXIDE 20 mmol/l (22-30); CHLORIDE 106 mmol/l (95-108); CREATININE 0.6 mg/dL (0.5-1.0); ETHYL ALCOHOL 0 mg/dl (0-30); GFR FOR AFR.AMER. > 60 ML/MIN (>=60 (CALC)); GFR OTHER RACES > 60 ML/MIN (>=60 (CALC)); SGOT/AST 32 u/l (9-36); SODIUM 138 mmol/l (137-146); TOTAL PROTEIN 6.9 g/dL (6.3-8.2)
[2021-11-06 02:27] LABS: ANION GAP 15 (6-22 (CALC)); BILIRUBIN, TOTAL 0.3 mg/dL (0.0-1.4)
[2021-11-06 02:30] VITALS: BP 131/66
[2021-11-06] MEDS ORDERED: POTASSIUM CHLO20 ME1 PO (03:25)
[2021-11-06 03:34] VITALS: BP 131/66
== END 2021-11-06 04:00 | disposition home or self-care (01) ==
LOC: ED 01:32
PROVIDERS: Family Medicine
DX: J06.9 Acute upper respiratory infection, unspecified (principal); E87.6 Hypokalemia; I10 Essential (primary) hypertension; E78.5 Hyperlipidemia, unspecified; F31.9 Bipolar disorder, unspecified; R63.6 Underweight; Z86.73 Personal history of transient ischemic attack (TIA), and cerebral infarction without residual deficits; Z20.822 Contact with and (suspected) exposure to COVID-19

== ENCOUNTER 2021-11-08 08:21 | Emergency (ER) | payer MEDICARE ==
[~2021-11-08] VITALS: Ht 160 cm; Wt 54.5 kg
[2021-11-08] VITALS (13 sets, daily range): BP systolic 62–199; BP diastolic 43–97
[~2021-11-08 08:21] MED LIST changes: +POTASSIUM CHLO20 ME1 PO
[2021-11-08 09:14] LABS: HEMATOCRIT 43.3 % (37.0-47.0); HEMOGLOBIN 13.5 g/dl (12.0-16.0); IMMATURE GRANULOCYTES 0.2 % (0.0-5.0); MEAN CELL VOLUME 111.6 fL CALC (80.0-100.0); MEAN CORPUSCULAR HGB 34.8 pG CALC (26.0-32.0); MEAN CORPUSCULAR HGB CONC 31.2 g/dL CAL (32.0-36.0); NEUT# 4.61 thou/uL (2.00-7.15); RED BLOOD COUNT 3.88 mill/uL (4.20-5.60)
[2021-11-08 09:28] LABS: ALBUMIN 3.5 g/dL (3.2-5.0); ALKALINE PHOSPHATASE 223 u/l (38-126); BILIRUBIN, TOTAL 0.4 mg/dL (0.0-1.4); BUN 7 mg/dL (8-23); BUN/CREATININE RATIO 12 (12-20 (CALC)); CARBON DIOXIDE 21 mmol/l (22-30); CHLORIDE 107 mmol/l (95-108); CREATININE 0.6 mg/dL (0.5-1.0); GFR FOR AFR.AMER. > 60 ML/MIN (>=60 (CALC)); GFR OTHER RACES > 60 ML/MIN (>=60 (CALC)); SGOT/AST 29 u/l (9-36); SODIUM 138 mmol/l (137-146); TOTAL PROTEIN 6.8 g/dL (6.3-8.2)
[2021-11-08 10:00] LABS: ANION GAP 14 (6-22 (CALC)); POTASSIUM 3.9 mmol/l (3.5-5.1)
[2021-11-08] MEDS ORDERED: OFLOXACIN0.3 % OD (10:06)
[2021-11-08] MEDS ORDERED: ZPAK PO (10:06)
[2021-11-08 11:27] LABS: URINE BLOOD DIPSTICK NEGATIVE (NEGATIVE); URINE COLOR YELLOW; URINE GLUCOSE - DIPSTICK NEGATIVE (NEGATIVE); URINE KETONE 15 mg/dL (NEGATIVE); URINE LEUK ESTERASE NEGATIVE (NEGATIVE); URINE PROTEIN - DIPSTICK TRACE mg/dL (NEG-TRACE); URINE SPECIFIC GRAVITY >=1.030; URINE UROBILINOGEN - DIPSTICK 0.2 E.U./dL (0.2)
[2021-11-08 11:45] LABS: URINE NITRITE - DIPSTICK POSITIVE (Negative)
[2021-11-08 11:46] LABS: URINE BILIRUBIN - DIPSTICK NEGATIVE (NEGATIVE)
[2021-11-08 11:51] LABS: URINE BACTERIA MANY hpf; URINE CASTS RARE lpf (NONE-RARE); URINE SQUAMOUS EPITHELIAL CELL MANY EPI/hpf (0-FEW)
[2021-11-08 12:17] LABS: INTERNATIONAL NORMALIZED RATIO 1.1 RATIO (0.7-1.3); PROTHROMBIN TIME 11.2 SECONDS (9.0-12.5)
--- NOTE | 2021-11-10 15:50 | NUR ---
FINAL URINE CULTURE RESULTS REPORTED TO PHARMACIST KATIE, THEIR FAX WAS DOWN SO I REPORTED RESISTANCES/SENSITVITIES VERBALLY TO THE [facility] INSTEAD.
== END 2021-11-08 12:30 | disposition short-term general hospital (02) ==
LOC: ED 08:21
PROVIDERS: Family Medicine
PROC: 0BH17EZ Insertion of Endotracheal Airway into Trachea, Via Natural or Artificial Opening (ICD-10-PCS; principal; 2021-11-08)
PROC: 5A1935Z Respiratory Ventilation, Less than 24 Consecutive Hours (ICD-10-PCS; 2021-11-08)
PROC: 3E043XZ Introduction of Vasopressor into Central Vein, Percutaneous Approach (ICD-10-PCS; 2021-11-08)
PROC: 02HV33Z Insertion of Infusion Device into Superior Vena Cava, Percutaneous Approach (ICD-10-PCS; 2021-11-08)
DX: R56.9 Unspecified convulsions (principal); R09.02 Hypoxemia; I95.9 Hypotension, unspecified; E87.4 Mixed disorder of acid-base balance; R05.9 Cough, unspecified; J02.9 Acute pharyngitis, unspecified; I10 Essential (primary) hypertension; E78.5 Hyperlipidemia, unspecified; F31.9 Bipolar disorder, unspecified; R63.6 Underweight; F17.290 Nicotine dependence, other tobacco product, uncomplicated; R82.71 Bacteriuria; Z86.73 Personal history of transient ischemic attack (TIA), and cerebral infarction without residual deficits; Z20.822 Contact with and (suspected) exposure to COVID-19; F10.10 Alcohol abuse, uncomplicated
CPT/HCPCS: J2060; Q3014; Q9967

== ENCOUNTER 2022-08-19 02:23 | Emergency (ER) | payer MEDICARE ==
[~2022-08-19] VITALS: Ht 160 cm; Wt 43.0 kg
[2022-08-19] VITALS (24 sets, daily range): BP systolic 135–207; BP diastolic 72–97
[~2022-08-19 02:23] MED LIST changes: +BUSPIRONE10 MG PO; +DULCOLAX5 MG PO; +HYDROXYZ HCL10 MG PO; +KETOCONAZOLE21 EX; +KRISTALOSE20 GM PO; +LOSARTAN POTASS25 MG PO; +MIRALAX17 GM; +OFLOXACIN0.3 % OD; +PROAIR HFA IN; +VITAMIN B12500 MC1 PO; +ZPAK PO
[2022-08-19 03:18] LABS: BASO% 0.4 % (0-3); EOS% 2.2 % (0-8); HEMATOCRIT 45.4 % (37.0-47.0); HEMOGLOBIN 14.4 g/dl (12.0-16.0); LYMPH% 25.3 % (15-41); MEAN CORPUSCULAR HGB 33.2 pG CALC (26.0-32.0); MEAN CORPUSCULAR HGB CONC 31.7 g/dL CAL (32.0-36.0); MONO% 6.5 % (2-13); NEUT# 3.52 thou/uL (2.00-7.15); NEUT% 65.6 % (42-76); RED BLOOD COUNT 4.34 mill/uL (4.20-5.60); RED CELL DISTRI WIDTH 13.4 % (11.5-15.5)
[2022-08-19 03:23] LABS: MEAN CELL VOLUME 104.6 fL CALC (80.0-100.0)
[2022-08-19 03:28] LABS: ALBUMIN 4.2 g/dL (3.2-5.0); ALKALINE PHOSPHATASE 166 u/l (38-126); BUN 10 mg/dL (8-23); BUN/CREATININE RATIO 18 (12-20 (CALC)); CARBON DIOXIDE 24 mmol/l (22-30); CHLORIDE 107 mmol/l (95-108); CREATININE 0.6 mg/dL (0.5-1.0); GFR FOR AFR.AMER. > 60 ML/MIN (>=60 (CALC)); GFR OTHER RACES > 60 ML/MIN (>=60 (CALC)); POTASSIUM 3.9 mmol/l (3.5-5.1); SGOT/AST 21 u/l (9-36); TOTAL PROTEIN 7.9 g/dL (6.3-8.2)
[2022-08-19 03:30] LABS: ANION GAP 13 (6-22 (CALC)); BILIRUBIN, TOTAL 0.5 mg/dL (0.02-1.3); SODIUM 140 mmol/l (137-146)
[2022-08-19] MEDS ORDERED: MEDDOSEPAK PO (05:09)
[2022-08-19] MEDS ORDERED: CIPROFLOXACN0.3 % OD (05:09)
[2022-08-19] MEDS ORDERED: DIPHENHYDRAM50 M2 PO (05:09)
== END 2022-08-19 08:25 | disposition home or self-care (01) ==
LOC: ED 02:23
PROVIDERS: Emergency Medicine
DX: L29.9 Pruritus, unspecified (principal); F41.9 Anxiety disorder, unspecified; I10 Essential (primary) hypertension; F31.9 Bipolar disorder, unspecified; E78.5 Hyperlipidemia, unspecified; F17.290 Nicotine dependence, other tobacco product, uncomplicated; Z86.73 Personal history of transient ischemic attack (TIA), and cerebral infarction without residual deficits

== ENCOUNTER 2022-09-13 17:25 | Emergency (ER) | payer MEDICARE ==
[~2022-09-13] VITALS: Ht 160 cm; Wt 40.0 kg
[~2022-09-13 17:25] MED LIST changes: +CIPROFLOXACN0.3 % OD; +DIPHENHYDRAM50 M2 PO
[2022-09-13 17:45] VITALS: BP 107/63
[2022-09-13] MEDS ORDERED: NAPROXEN500 MG PO (17:56)
[2022-09-13] MEDS ORDERED: CLINDAMYCIN300 M1 PO (17:56)
[2022-09-13 18:00] VITALS: BP 124/64
[2022-09-13 18:15] VITALS: BP 109/64
[2022-09-13 18:25] VITALS: BP 109/64
== END 2022-09-13 18:33 | disposition home or self-care (01) ==
LOC: ED 17:25
PROC: 0C96XZZ Drainage of Lower Gingiva, External Approach (ICD-10-PCS; principal; 2022-09-13)
DX: K04.7 Periapical abscess without sinus (principal); I10 Essential (primary) hypertension; E78.5 Hyperlipidemia, unspecified; F31.9 Bipolar disorder, unspecified; D32.0 Benign neoplasm of cerebral meninges; Z86.73 Personal history of transient ischemic attack (TIA), and cerebral infarction without residual deficits; F17.290 Nicotine dependence, other tobacco product, uncomplicated

== ENCOUNTER 2022-09-18 18:30 | Inpatient (IN) | payer MEDICARE ==
[~2022-09-18] VITALS: Ht 160 cm; Wt 39.0 kg
[2022-09-18] VITALS (18 sets, daily range): BP systolic 133–177; BP diastolic 72–90
[~2022-09-18 18:30] MED LIST changes: +CLINDAMYCIN300 M1 PO; +NAPROXEN500 MG PO
[2022-09-18 19:19] LABS: BASO% 0.2 % (0-3); EOS% 0.1 % (0-8); HEMOGLOBIN 13.7 g/dl (12.0-16.0); IMMATURE GRANULOCYTES 0.1 % (0.0-5.0); LYMPH% 8.6 % (15-41); MEAN CELL VOLUME 105.4 fL CALC (80.0-100.0); MEAN CORPUSCULAR HGB 33.6 pG CALC (26.0-32.0); MEAN CORPUSCULAR HGB CONC 31.9 g/dL CAL (32.0-36.0); MONO% 3.5 % (2-13); NEUT# 7.51 thou/uL (2.00-7.15); NEUT% 87.5 % (42-76); RED BLOOD COUNT 4.08 mill/uL (4.20-5.60); RED CELL DISTRI WIDTH 12.8 % (11.5-15.5)
[2022-09-18 19:30] LABS: ALBUMIN 4.4 g/dL (3.2-5.0); ALKALINE PHOSPHATASE 179 u/l (38-126); ANION GAP 16 (6-22 (CALC)); BILIRUBIN, TOTAL 0.6 mg/dL (0.02-1.3); BUN 9 mg/dL (8-23); BUN/CREATININE RATIO 16 (12-20 (CALC)); CALCULATED LDLCHOLESTEROL 199 mg/dL (62-129 (CALC)); CARBON DIOXIDE 24 mmol/l (22-30); CHLORIDE 101 mmol/l (95-108); CHOLESTEROL HDL RATIO 4.8 (<4.4 (CALC)); CREATININE 0.6 mg/dL (0.5-1.0); GFR FOR AFR.AMER. > 60 ML/MIN (>=60 (CALC)); GFR OTHER RACES > 60 ML/MIN (>=60 (CALC)); HDL CHOLESTEROL 60 mg/dL (39.0-59.0); POTASSIUM 4.3 mmol/l (3.5-5.1); SGOT/AST 31 u/l (9-36); SODIUM 137 mmol/l (137-146); TOTAL CHOLESTEROL 288 mg/dl (0-199); TOTAL PROTEIN 8.4 g/dL (6.3-8.2); TOTAL TRIGLYCERIDES 147 mg/dl (0-149); VLDL CHOLESTROL 29 mg/dl (0-48 (CALC))
[2022-09-18 19:36] LABS: PROTHROMBIN TIME 10.1 SECONDS (9.0-12.5)
[2022-09-18 23:45] LABS: C-REACTIVE PROTEIN 1.3 mg/dL (0-0.9); MAGNESIUM 1.4 mg/dL (1.6-2.3)
[2022-09-19] VITALS (80 sets, daily range): BP systolic 90–161; BP diastolic 45–90
[2022-09-19 01:38] LABS: URINE COLOR YELLOW
[2022-09-19 01:39] LABS: URINE BILIRUBIN - DIPSTICK NEGATIVE (NEGATIVE); URINE BLOOD DIPSTICK NEGATIVE (NEGATIVE); URINE GLUCOSE - DIPSTICK NEGATIVE (NEGATIVE); URINE KETONE Negative (NEGATIVE); URINE LEUK ESTERASE TRACE (NEGATIVE); URINE NITRITE - DIPSTICK NEGATIVE (Negative); URINE PROTEIN - DIPSTICK NEGATIVE (NEG-TRACE); URINE UROBILINOGEN - DIPSTICK 0.2 E.U./dL (0.2)
[2022-09-19 07:16] LABS: MAGNESIUM 1.4 mg/dL (1.6-2.3)
[2022-09-19 10:00] LABS: BASO% 0.8 % (0-3); EOS% 0.8 % (0-8); IMMATURE GRANULOCYTES 0.2 % (0.0-5.0); LYMPH% 29.7 % (15-41); MEAN CELL VOLUME 106.1 fL CALC (80.0-100.0); MEAN CORPUSCULAR HGB 34.1 pG CALC (26.0-32.0); MEAN CORPUSCULAR HGB CONC 32.1 g/dL CAL (32.0-36.0); NEUT# 3.02 thou/uL (2.00-7.15); NEUT% 60.5 % (42-76); RED BLOOD COUNT 3.14 mill/uL (4.20-5.60)
[2022-09-19 10:03] LABS: HEMATOCRIT 33.3 % (37.0-47.0); HEMOGLOBIN 10.7 g/dl (12.0-16.0)
[2022-09-19 10:30] LABS: ANION GAP 6 (6-22 (CALC)); BUN 7 mg/dL (8-23); BUN/CREATININE RATIO 14 (12-20 (CALC)); CARBON DIOXIDE 29 mmol/l (22-30); CHLORIDE 105 mmol/l (95-108); CREATININE 0.5 mg/dL (0.5-1.0); GFR FOR AFR.AMER. > 60 ML/MIN (>=60 (CALC)); GFR OTHER RACES > 60 ML/MIN (>=60 (CALC)); SODIUM 137 mmol/l (137-146)
== END 2022-09-19 20:10 | disposition short-term general hospital (02) | DRG 100 ==
LOC: ED 18:30 → ED-I 20:50 → ED 21:30 → ICU 21:31
PROVIDERS: Family Medicine; ADMIT Student in an Organized Health Care Education/Training Program; ATTEND Student in an Organized Health Care Education/Training Program
PROC: 02HV33Z Insertion of Infusion Device into Superior Vena Cava, Percutaneous Approach (ICD-10-PCS; principal; 2022-09-19)
PROC: 0T9B70Z Drainage of Bladder with Drainage Device, Via Natural or Artificial Opening (ICD-10-PCS; 2022-09-19)
DX: G40.101 Localization-related (focal) (partial) symptomatic epilepsy and epileptic syndromes with simple partial seizures, not intractable, with status epilepticus (principal); G93.6 Cerebral edema; Z68.1 Body mass index [BMI] 19.9 or less, adult; I69.354 Hemiplegia and hemiparesis following cerebral infarction affecting left non-dominant side; I10 Essential (primary) hypertension; E78.5 Hyperlipidemia, unspecified; F10.10 Alcohol abuse, uncomplicated; D32.0 Benign neoplasm of cerebral meninges; F31.9 Bipolar disorder, unspecified; R63.6 Underweight; F17.290 Nicotine dependence, other tobacco product, uncomplicated; S01.512A Laceration without foreign body of oral cavity, initial encounter; X58.XXXA Exposure to other specified factors, initial encounter
CPT/HCPCS: J2060; Q9967

== ENCOUNTER 2023-02-06 03:50 | Emergency (ER) | payer MEDICARE ==
[~2023-02-06] VITALS: Ht 160 cm; Wt 50.0 kg
[2023-02-06] VITALS (11 sets, daily range): BP systolic 132–182; BP diastolic 69–92
[~2023-02-06 03:50] MED LIST changes: +ASPIRIN 81 LOW81 MG PO; +CELEXA10 MG PO; +CRESTOR20 MG PO; +PHENYTOIN EX100 MG PO; +PLAVIX75 MG PO; -PROAIR HFA IN; +VENTOLIN HFA108 MCG PO; +ZOFRAN4 MG/TAB PO
[2023-02-06] MEDS ORDERED: ARICEPT PO (04:29)
[2023-02-06 04:36] LABS: BASO% 0.6 % (0-3); EOS% 0.7 % (0-8); HEMATOCRIT 39.9 % (37.0-47.0); HEMOGLOBIN 12.1 g/dl (12.0-16.0); IMMATURE GRANULOCYTES 1.2 % (0.0-5.0); LYMPH% 28.8 % (15-41); MEAN CELL VOLUME 101.3 fL CALC (80.0-100.0); MEAN CORPUSCULAR HGB 30.7 pG CALC (26.0-32.0); MEAN CORPUSCULAR HGB CONC 30.3 g/dL CAL (32.0-36.0); MONO% 5.3 % (2-13); NEUT# 6.9 thou/uL (2.00-7.15); NEUT% 63.4 % (42-76); RED BLOOD COUNT 3.94 mill/uL (4.20-5.60); RED CELL DISTRI WIDTH 12.8 % (11.5-15.5)
[2023-02-06] MEDS ORDERED: MEDDOSEPAK PO (04:39)
[2023-02-06 05:05] LABS: ALKALINE PHOSPHATASE 153 u/l (38-126); BILIRUBIN, TOTAL 0.3 mg/dL (0.02-1.3); BUN 24 mg/dL (8-23); BUN/CREATININE RATIO 44 (12-20 (CALC)); CARBON DIOXIDE 27 mmol/l (22-30); CHLORIDE 100 mmol/l (95-108); CREATININE 0.6 mg/dL (0.5-1.0); GFR FOR AFR.AMER. > 60 ML/MIN (>=60 (CALC)); GFR OTHER RACES > 60 ML/MIN (>=60 (CALC)); SODIUM 137 mmol/l (137-146)
[2023-02-06 05:24] LABS: ALBUMIN 4.6 g/dL (3.2-5.0); ANION GAP 15 (6-22 (CALC)); POTASSIUM 4.7 mmol/l (3.5-5.1); SGOT/AST 41 u/l (9-36); TOTAL PROTEIN 8.7 g/dL (6.3-8.2)
[2023-02-06 06:43] LABS: URINE BILIRUBIN - DIPSTICK Negative (NEGATIVE); URINE BLOOD DIPSTICK Negative (NEGATIVE); URINE GLUCOSE - DIPSTICK Negative (NEGATIVE); URINE KETONE Negative (NEGATIVE); URINE NITRITE - DIPSTICK Negative (Negative); URINE PROTEIN - DIPSTICK >=300 mg/dL (NEG-TRACE); URINE SPECIFIC GRAVITY 1.025; URINE UROBILINOGEN - DIPSTICK 0.2 E.U./dL (0.2)
[2023-02-06 06:44] LABS: URINE COLOR Yellow
[2023-02-06 06:48] LABS: URINE BACTERIA MANY hpf; URINE EPITHELIAL CELLS FEW EPI/hpf (0-FEW); URINE LEUK ESTERASE Small (NEGATIVE)
[2023-02-06] MEDS ORDERED: KEPPRA750 M2 PO ×2 (06:57→07:42)
== END 2023-02-06 07:27 ==
LOC: ED 03:50
PROVIDERS: Family Medicine
DX: G40.409 Other generalized epilepsy and epileptic syndromes, not intractable, without status epilepticus (principal); D32.0 Benign neoplasm of cerebral meninges; F17.200 Nicotine dependence, unspecified, uncomplicated
CPT/HCPCS: J1953

== ENCOUNTER 2023-04-05 23:12 | Emergency (ER) | payer MEDICARE ==
[~2023-04-05] VITALS: Ht 160 cm; Wt 49.0 kg
[~2023-04-05 23:12] MED LIST changes: +ARICEPT PO
[2023-04-05 23:19] VITALS: BP 125/53
[2023-04-05] MEDS ORDERED: MIDAZOLAM IV ONE (23:20)
[2023-04-05 23:31] VITALS: BP 113/52
[2023-04-05] MEDS ORDERED: MIDAZOLAM HCL 2 MG/2 ML VIAL IV ONE (23:45)
[2023-04-06 00:22] LABS: BASO% 0.5 % (0-3); EOS% 6.9 % (0-8); IMMATURE GRANULOCYTES 0.2 % (0.0-5.0); LYMPH% 29.8 % (15-41); MEAN CELL VOLUME 96.9 fL CALC (80.0-100.0); MEAN CORPUSCULAR HGB CONC 29.9 g/dL CAL (32.0-36.0); MONO% 10.1 % (2-13); NEUT# 3.18 thou/uL (2.00-7.15); NEUT% 52.5 % (42-76); RED BLOOD COUNT 3.21 mill/uL (4.20-5.60)
[2023-04-06 00:24] LABS: HEMATOCRIT 31.1 % (37.0-47.0); HEMOGLOBIN 9.3 g/dl (12.0-16.0)
[2023-04-06 00:42] LABS: ALKALINE PHOSPHATASE 127 u/l (38-126); ANION GAP 8 (6-22 (CALC)); BUN 29 mg/dL (8-23); BUN/CREATININE RATIO 39 (12-20 (CALC)); CARBON DIOXIDE 28 mmol/l (22-30); CHLORIDE 107 mmol/l (95-108); CPK 27 u/l (30-135); CREATININE 0.7 mg/dL (0.5-1.0); GFR FOR AFR.AMER. > 60 ML/MIN (>=60 (CALC)); GFR OTHER RACES > 60 ML/MIN (>=60 (CALC)); LIPASE 152 u/l (23-300); POTASSIUM 4.2 mmol/l (3.5-5.1); SGOT/AST 22 u/l (9-36); SODIUM 138 mmol/l (137-146)
[2023-04-06 00:55] LABS: ALBUMIN 3.4 g/dL (3.2-5.0); MAGNESIUM 2.2 mg/dL (1.6-2.3); TOTAL PROTEIN 6.6 g/dL (6.3-8.2)
[2023-04-06 01:12] LABS: TSH, 3RD GENERATION 5.04 uIU/mL (0.47 - 4.68)
[2023-04-06 02:20] LABS: PHENYTOIN (DILANTIN) 15 ug/mL (10 - 20)
[2023-04-06 03:08] LABS: URINE BILIRUBIN - DIPSTICK Negative (NEGATIVE); URINE BLOOD DIPSTICK Trace-intact (NEGATIVE); URINE GLUCOSE - DIPSTICK Negative (NEGATIVE); URINE KETONE Negative (NEGATIVE); URINE LEUK ESTERASE Trace (NEGATIVE); URINE PROTEIN - DIPSTICK Negative (NEG-TRACE); URINE SPECIFIC GRAVITY 1.025; URINE UROBILINOGEN - DIPSTICK 0.2 E.U./dL (0.2)
[2023-04-06 03:11] LABS: URINE COLOR Yellow; URINE NITRITE - DIPSTICK Positive (Negative)
[2023-04-06 03:14] LABS: URINE BACTERIA MANY hpf; URINE SQUAMOUS EPITHELIAL CELL FEW EPI/hpf (0-FEW)
[2023-04-06 04:16] VITALS: BP 132/74
== END 2023-04-06 05:30 | disposition home or self-care (01) ==
LOC: ED 23:12
PROVIDERS: Internal Medicine
DX: R25.1 Tremor, unspecified (principal); R93.0 Abnormal findings on diagnostic imaging of skull and head, not elsewhere classified; D64.9 Anemia, unspecified; F31.9 Bipolar disorder, unspecified; D32.0 Benign neoplasm of cerebral meninges; F17.200 Nicotine dependence, unspecified, uncomplicated; Z86.73 Personal history of transient ischemic attack (TIA), and cerebral infarction without residual deficits; R82.71 Bacteriuria

== ENCOUNTER 2024-02-17 01:09 | Emergency (ER) | payer MEDICARE, MEDICAID ==
[~2024-02-17] VITALS: Ht 160 cm; Wt 52.6 kg
[~2024-02-17 01:09] MED LIST changes: +ATIVAN0.5 MG PO; +BELSOMRA10 MG PC; +CIPROFLOXACN500 MG PO; +COLACE100 MG PO; +DEPAKOTE125 MG PO; +ELIQUIS5 MG PO; +LEVETIRACETAM1000 MG PO; +MEMANTINE HYDRO10 MG PO; +MIRALAX17 GM PO; +TRAMADOL HYDROC50 M1 PO; +TRAZODONE50 MG PO; +VITAMIN B-121000 MCG PO
[2024-02-17 04:10] VITALS: BP 148/60
== END 2024-02-17 04:12 | disposition home or self-care (01) ==
LOC: ED 01:09
DX: S00.83XA Contusion of other part of head, initial encounter (principal); S06.5X0D Traumatic subdural hemorrhage without loss of consciousness, subsequent encounter; I12.9 Hypertensive chronic kidney disease with stage 1 through stage 4 chronic kidney disease, or unspecified chronic kidney disease; N18.9 Chronic kidney disease, unspecified; F31.9 Bipolar disorder, unspecified; F03.90 Unspecified dementia, unspecified severity, without behavioral disturbance, psychotic disturbance, mood disturbance, and anxiety; F17.200 Nicotine dependence, unspecified, uncomplicated; W19.XXXA Unspecified fall, initial encounter; W19.XXXD Unspecified fall, subsequent encounter